=== PATIENT | female | born 1955 | race Caucasian/White ===

== ENCOUNTER 2020-06-27 05:30 | Inpatient (IN) | payer MEDICARE, OTHER ==
--- NOTE | 2020-06-22 11:15 | RADIOLOGY REPORT (SQ) ---
EXAM DESCRIPTION: CHEST PA/LATERAL IMAGES COMPLETED DATE/TIME: 06/22/2020 11:06 am REASON FOR STUDY: PRE-OP COMPARISON: None. EXAM PARAMETERS: NUMBER OF VIEWS: two views TECHNIQUE: Digital Frontal and Lateral radiographic views of the chest acquired. RADIATION DOSE: NA LIMITATIONS: none FINDINGS: LUNGS AND PLEURA: No opacities, masses or pneumothorax. No pleural effusion. MEDIASTINUM AND HILAR STRUCTURES: No masses or contour abnormalities. HEART AND VASCULAR STRUCTURES: Heart normal size. No evidence for failure. BONES: No acute findings. HARDWARE: None in the chest. OTHER: No other significant finding. IMPRESSION: NO SIGNIFICANT RADIOGRAPHIC FINDING IN THE CHEST. TECHNICAL DOCUMENTATION: JOB ID: [id number] 2010 [employer]- All Rights Reserved Reading location - IP/workstation name: [email or web address]
[2020-06-22 12:16] LABS: HEMATOCRIT 37.6 % (36.0-47.0); HEMOGLOBIN 12.9 g/dL (12.0-15.5); MEAN CORPUSCULAR HEMOGLOBIN 30.9 pg (27.0-33.4); MEAN CORPUSCULAR HGB CONC 34.3 g/dL (32.0-36.0); MEAN CORPUSCULAR VOLUME 90 fl (80-97); PLATELET COUNT 236 10^3/uL (150-450); RED BLOOD COUNT 4.17 10^6/uL (3.72-5.28); RED CELL DISTRIBUTION WIDTH 14.1 % (11.5-14.0); WHITE BLOOD COUNT 4.5 10^3/uL (4.0-10.5)
[2020-06-22 12:22] LABS: APPEARANCE,URINE CLEAR; BILIRUBIN,URINE NEGATIVE (NEGATIVE); COLOR,URINE YELLOW; GLUCOSE, URINE NEGATIVE (NEGATIVE); KETONES,URINE NEGATIVE (NEGATIVE); LEUKOCYTE ESTERASE,URINE TRACE (NEGATIVE); NITRITE,URINE NEGATIVE (NEGATIVE); PROTEIN,URINE NEGATIVE (NEGATIVE); URINE SPECIFIC GRAVITY 1.013; UROBILINOGEN,URINE NEGATIVE mg/dL (<2.0)
[2020-06-22 12:46] LABS: ANION GAP 6 (5-19); BLOOD UREA NITROGEN 19 mg/dL (7-20); CALCIUM 9.4 mg/dL (8.4-10.2); CARBON DIOXIDE 27 mmol/L (22-30); CHLORIDE 104 mmol/L (98-107); GLUCOSE 87 mg/dL (75-110); POTASSIUM 4.5 mmol/L (3.6-5.0)
[2020-06-22 12:50] LABS: ALCOHOL < 10 mg/dL (NONE DETECTED)
[2020-06-22 13:03] LABS: URINE AMPHETAMINES SCREEN NEGATIVE; URINE BARBITURATES SCREEN NEGATIVE; URINE BENZODIAZEPINES SCREEN NEGATIVE; URINE COCAINE SCREEN NEGATIVE; URINE MARIJUANA (THC) SCREEN NEGATIVE; URINE METHADONE SCREEN NEGATIVE; URINE PHENCYCLIDINE SCREEN NEGATIVE
--- NOTE | 2020-06-22 14:54 | EKG REPORT ---
SEVERITY:- ABNORMAL ECG - SINUS BRADYCARDIA RBBB : Confirmed by: Kenny Haley MD 22-Jun-2020 14:54:37
[~2020-06-27 05:30] MED LIST: CLINDAMYCIN 900 MG/D5W RTU 900 MG/50 ML RTUPB IV ONE; CLINDAMYCIN 900 MG/D5W RTU 900 MG/50 ML RTUPB IV PRN; LACTATED RINGERS 1000 ML IV PRN; LIDOCAINE 0.5% INJ-PF (5 MG/ML) 50 ML SDV SUBCUT PRN
[2020-06-27] MEDS ORDERED: BUPIVACAINE HCL 0.5 % INJ/PF 30 ML SDV ONE (07:07)
[2020-06-27] MEDS ORDERED: MIDAZOLAM 2 MG/2 ML INJ ONE (07:08)
[2020-06-27] MEDS ORDERED: MINERAL OIL (STERILE) 10 ML VIAL ONE (07:08)
[2020-06-27] MEDS ORDERED: BACITRACIN INJ 50,000 UNIT VIAL ONE (07:08)
[2020-06-27] MEDS ORDERED: HEPARIN SOD (PORCINE) 1,000 UNIT/ML 10 ML VIAL ONE (07:08)
[2020-06-27] MEDS ORDERED: BUPIVACAINE INJ/PF LIPOSOME/PF 266 MG/20 ML SDV ONE (07:08)
[2020-06-27] MEDS ORDERED: PROPOFOL INJ 200 MG/20 ML VIAL IV ONE (07:08)
[2020-06-27] MEDS ORDERED: LIDOCAINE 2% INJ-PF (20 MG/ML) 10 ML AMPUL ONE (07:08)
[2020-06-27] MEDS ORDERED: HYDROMORPHONE HCL INJ/PF 2 MG/ML AMPULE ONE (07:08)
[2020-06-27] MEDS ORDERED: PROMETHAZINE HCL 25 MG TABLET PO PRN (07:34)
[2020-06-27] MEDS ORDERED: MAGNESIUM HYDROXIDE SUSP 30 ML UDCUP PO PRN (07:34)
[2020-06-27] MEDS ORDERED: RINGERS SOLUTION,LACTATED 1,000 ML IV PRN (07:34)
[2020-06-27] MEDS ORDERED: ACETAMINOPHEN SOLN 325 MG/10.15 ML UDCUP PO PRN (07:34)
[2020-06-27] MEDS ORDERED: DIPHENHYDRAMINE HCL 50 MG/ML VIAL IV PRN ×2 (07:34→08:34)
[2020-06-27] MEDS ORDERED: ACETAMINOPHEN 650 MG SUPP.RECT PR PRN (07:34)
[2020-06-27] MEDS ORDERED: DIPHENHYDRAMINE HCL 25 MG CAPSULE PO PRN (07:34)
[2020-06-27] MEDS ORDERED: PROMETHAZINE HCL INJ 25 MG/1 ML VIAL IM PRN (07:34)
[2020-06-27] MEDS ORDERED: MORPHINE SULFATE 10 MG/ML INJ IV PRN (07:34)
[2020-06-27] MEDS ORDERED: METHOCARBAMOL 750 MG TABLET PO PRN (07:34)
[2020-06-27] MEDS ORDERED: ONDANSETRON HCL INJ/PF 4 MG/2 ML SDV IV PRN (08:34)
[2020-06-27] MEDS ORDERED: MEPERIDINE HCL/PF INJ 25 MG/1 ML DISP.SYRIN IV PRN (08:34)
[2020-06-27] MEDS ORDERED: FENTANYL CITRATE INJ/PF 100 MCG/2 ML AMPUL IV PRN ×2 (08:34)
[2020-06-27] MEDS ORDERED: PROMETHAZINE HCL INJ 25 MG/1 ML VIAL IV PRN ×2 (08:34)
--- NOTE | 2020-06-27 09:46 | Operative Report ---
Operative Report DATE OF SURGERY: 06/27/20 PREOPERATIVE DIAGNOSIS: L4-5 spondylolisthesis. L4-5 stenosis. L4-5 degenerat magdalene disc disease. Back pain. Lumbar radiculitis POSTOPERATIVE DIAGNOSIS: L4-5 spondylolisthesis. L4-5 stenosis. L4-5 degenerative disc disease. Back pain. Lumbar radiculitis. Status post L4-5 anterior lateral lumbar interbody fusion with interbody spacer. L4-5 posterior fusion robotically assisted with instrumentation and left iliac crest aspiration through separate incision for bone marrow concentration to be used with allograft OPERATION: L4-5 anterior lateral lumbar interbody fusion with interbody spacer. L4-5 posterior fusion robotically assisted with instrumentation and left iliac crest aspiration through separate incision for bone marrow concentration to be used with allograft SURGEON: ROMA SORTO 1ST AEROSOL LINE OPERATOR: DEYANIRA CHRISTIANSEN ANESTHESIA: GA COMPLICATIONS: None ESTIMATED BLOOD LOSS: 100 cc PROCEDURE: Patient is brought into the room placed under general anesthesia received 900 mg of clindamycin within 1 hour of cut time was placed on the Clarence table medial epicondyles and axillary areas are well-padded. Neuro monitoring leads for SSEP and cranial motor testing are placed on the patient as well as a Montejo catheter is placed preoperatively. After appropriate surgical timeout the [employer] robot is utilized and on the right posterior superior iliac spine a pin is placed and attached to the robot. After obtaining registration imaging in the AP and oblique position and verification 6.5 x 45 mm x2 and 6.5 x 40 mm x 2 screws are inserted using portal incisions on the right and the left at L4 and L5 bilaterally. Left iliac crest is aspirated at 2 different sites total of 50 cc of bone marrow aspirate are obtained and concentrated to be used an interbody spacer with the allograft. Attention was then paid to the left sided anterior lateral portal for entry into the disc space which is carried out under navigation guidance upon verification also with x-rays and then stimulation thresholds greater than 17 mA. Upon inserting the portal into the disc space at L4-5 fluoroscopy was used to verify the position as it did also to verify the screws position. Endplate pj and curettes and brushes are used to carry out a complete discectomy then the verify balloon is inserted to verify good contact with the endplates. Then the appropriate size mesh spacer is introduced into the interbody. The mesh spacer is soaked in bone marrow aspirate concentrate and is filled with bone graft showing good correction and good containment within the disc space at L4-5. Upon neuro monitoring testing and cranial motor testing found to be stable then the portal is removed anterior laterally and attention is then paid to the placement of the rods upon using the caliper device the appropriate length rods were determined to be 40 mm rods on the right and on the left those are passed down and locked into position and final tightened. Then the tabs are removed and the portals are irrigated with copious amounts of irrigation and the posterior superior iliac spine pin connected to the robot is removed as well and the deep and superficial tissues were infiltrated with 1.3% Exparel 20 cc mixed with 20 cc of 0.5% bupivacaine plain. The portals are closed using 2-0 Vicryl and then Dermabond and Steri-Strips then 4 x 4's were used to cover the wounds on the right and the left and dressed with coverall tape. Please note that this procedure could not be done without the assistance of Calvin Munson working to assist with the placement of the screws positioning of the robot carrying out the aspiration through the left side iliac crest aspiration please also note that the iliac crest aspiration is carried out on the left side through a separate incision. Calvin Munson was instrumental throughout this whole process and I could not have done this procedure without his assistance as mentioned above.
[2020-06-27] MEDS ORDERED: METHOCARBAMOL 500 MG TABLET PO PRN (09:51)
[2020-06-27] MEDS ORDERED: METHOCARBAMOL INJ/PF 1000 MG/10 ML SDV ONE (09:54)
[2020-06-27] MEDS ORDERED: FENTANYL CITRATE INJ/PF 100 MCG/2 ML AMPUL ONE (09:55)
[2020-06-27] MEDS ORDERED: METFORMIN HCL PO SCH (10:00)
[2020-06-27] MEDS: FENTANYL CITRATE INJ/PF 100 MCG/2 ML AMPUL IV PRN ×2 (10:05→10:10)
--- NOTE | 2020-06-27 10:12 | RADIOLOGY REPORT (SQ) ---
EXAM DESCRIPTION: L SPINE 2 VIEWS; NO CHG FLUORO IMAGES COMPLETED DATE/TIME: 06/27/2020 9:55 am REASON FOR STUDY: LUMBAR SPINE FUSION ASSISTED WITH FLUORO IN OR M54.5 LOW BACK PAIN M51.16 INTERV ERTEBRAL DISC DISORDERS W RADICULOPATHY, LUMBAR M43.16 SPONDYLOLISTHESIS, LUMBAR REGION COMPARISON: None. FLUOROSCOPY TIME: 0.9 minutes. 2 images saved to PACS. TECHNIQUE: Intra-operative images acquired during surgical procedure to evaluate progress. NUMBER OF IMAGES: 2 images. LIMITATIONS: None. FINDINGS: Images of the lower lumbar spine acquired during the procedure. IMPRESSION: IMAGE(S) OBTAINED DURING PROCEDURE. COMMENT: Quality ID [id number]: Final reports for procedures using fluoroscopy that document radiation exp osure indices, or exposure time and number of fluorographic images (if radiation exposure indices are not available) Please consult full operative report of the attending physician for description of the procedure. TECHNICAL DOCUMENTATION: JOB ID: [id number] 2010 [employer]- All Rights Reserved Reading location - IP/workstation name: [email or web address]
--- NOTE | 2020-06-27 10:12 | RADIOLOGY REPORT (SQ) ---
EXAM DESCRIPTION: L SPINE 2 VIEWS; NO CHG FLUORO IMAGES COMPLETED DATE/TIME: 06/27/2020 9:55 am REASON FOR STUDY: LUMBAR SPINE FUSION ASSISTED WITH FLUORO IN OR M54.5 LOW BACK PAIN M51.16 INTERV ERTEBRAL DISC DISORDERS W RADICULOPATHY, LUMBAR M43.16 SPONDYLOLISTHESIS, LUMBAR REGION COMPARISON: None. FLUOROSCOPY TIME: 0.9 minutes. 2 images saved to PACS. TECHNIQUE: Intra-operative images acquired during surgical procedure to evaluate progress. NUMBER OF IMAGES: 2 images. LIMITATIONS: None. FINDINGS: Images of the lower lumbar spine acquired during the procedure. IMPRESSION: IMAGE(S) OBTAINED DURING PROCEDURE. COMMENT: Quality ID [id number]: Final reports for procedures using fluoroscopy that document radiation exp osure indices, or exposure time and number of fluorographic images (if radiation exposure indices are not available) Please consult full operative report of the attending physician for description of the procedure. TECHNICAL DOCUMENTATION: JOB ID: [id number] 2010 [employer]- All Rights Reserved Reading location - IP/workstation name: [email or web address]
[2020-06-27] MEDS ORDERED: METHOCARBAMOL INJ/PF 1000 MG/10 ML SDV IV PRN (10:35)
[2020-06-27] MEDS: GABAPENTIN 300 MG CAPSULE PO SCH ×3 (11:35→23:56)
[2020-06-27] MEDS: OXYCODONE HCL IR 5 MG TABLET PO PRN ×3 (11:35→20:54)
[2020-06-27] MEDS: ACETAMINOPHEN 325 MG TABLET PO SCH ×2 (13:38→21:57)
[2020-06-27] MEDS: METHOCARBAMOL 750 MG TABLET PO SCH ×2 (13:39→21:58)
[2020-06-27] MEDS: ONDANSETRON HCL INJ/PF 4 MG/2 ML SDV IV PRN ×2 (13:39→20:12)
[2020-06-27] MEDS: CLINDAMYCIN 900 MG/D5W RTU 900 MG/50 ML RTUPB IV SCH ×2 (13:40→21:58)
[2020-06-27] MEDS ORDERED: CLINDAMYCIN 600 MG/D5W RTU 600 MG/50 ML RTUPB IV SCH (14:00)
[2020-06-27] MEDS ORDERED: GLYCOPYRROLATE 1 MG/5 ML VIAL ONE (16:04)
[2020-06-27] MEDS ORDERED: DEXAMETHASONE SOD PHOSPHATE INJ 4 MG/1 ML VIAL ONE (16:04)
[2020-06-27] MEDS ORDERED: SUCCINYLCHOLINE CHLORIDE INJ 200 MG/10 ML VIAL ONE (16:04)
[2020-06-27] MEDS ORDERED: METOCLOPRAMIDE HCL INJ/PF 10 MG/2 ML SDV ONE (16:04)
[2020-06-27] MEDS ORDERED: ONDANSETRON HCL INJ/PF 4 MG/2 ML SDV ONE (16:04)
[2020-06-27] MEDS ORDERED: LIDOCAINE 2% INJ-PF (20 MG/ML) 2 ML AMPUL ONE (16:04)
[2020-06-27] MEDS: SENNOSIDES/DOCUSATE 8.6-50 MG 1 EACH TABLET PO SCH (17:28)
[2020-06-27] MEDS: METFORMIN HCL 500 MG TABLET PO SCH (17:28)
[2020-06-27] MEDS: ATORVASTATIN CALCIUM 40 MG TABLET PO SCH (21:58)
[2020-06-28] MEDS: OXYCODONE HCL IR 5 MG TABLET PO PRN ×4 (02:13→21:20)
[2020-06-28] MEDS: ACETAMINOPHEN 325 MG TABLET PO SCH ×3 (06:30→21:57)
[2020-06-28] MEDS: GABAPENTIN 300 MG CAPSULE PO SCH ×4 (06:32→23:16)
[2020-06-28] MEDS: CLINDAMYCIN 900 MG/D5W RTU 900 MG/50 ML RTUPB IV SCH ×3 (06:32→21:21)
[2020-06-28] MEDS: METHOCARBAMOL 750 MG TABLET PO SCH ×3 (06:32→21:57)
[2020-06-28] MEDS: LEVOTHYROXINE SODIUM 0.088 MG TABLET PO SCH (06:32)
[2020-06-28] MEDS: PANTOPRAZOLE SODIUM 20 MG TABLET.DR PO SCH (06:32)
[2020-06-28] MEDS ORDERED: INFLUENZA QUAD (6MOS+) 2020-21 VAC 0.5 ML SYR IM ONE (08:00)
--- NOTE | 2020-06-28 08:09 | PDOC PROGRESS REPORT ---
Subjective Date:: 06/28/20 Subjective:: Postop day 1 lumbar fusion: Patient is laying in bed at time of exam, she reports improvement in her right leg pain. Reports apprehension to being discharged home today. Patient reports that her was not discharged on postop day 1 a lumbar fusion and had significant issues. Patient also reports that she has a large number of stairs to get into her house and is worried about being able to navigate the stairs. She reports normal bowel and bladder function. Ports she is eating well and drinking well Reason For Visit: M51.16, M54.5, M43.16 Physical Exam Vital Signs: Temp Pulse Resp BP Pulse Ox 98.1 F 67 16 113/59 L 99 06/28/20 03:06 06/28/20 03:06 06/28/20 03:06 06/28/20 03:06 06/28/20 03:06 Intake & Output 06/27/20 06/28/20 06/29/20 06:59 06:59 06:59 Intake Total 2560 Output Total 20 Balance 2540 Weight 66 kg General appearance: PRESENT: no acute distress, cooperative Head exam: PRESENT: atraumatic, normocephalic Eye exam: PRESENT: PERRLA Extremities exam: PRESENT: tenderness - Appropriate postoperative pain swelling and tenderness is appreciated. ABSENT: calf tenderness, joint swelling Musculoskeletal exam: PRESENT: ambulatory Additional comments: Lumbar spine: Dressing is clean and dry and intact no signs of bleeding edges appreciated on the dressing. Neurological exam: PRESENT: alert, altered, awake, oriented to situation Psychiatric exam: PRESENT: appropriate affect Results Laboratory Results: 06/22/20 10:55 06/22/20 10:55 Impressions: Chest X-Ray 06/22/20 00:00 IMPRESSION: NO SIGNIFICANT RADIOGRAPHIC FINDING IN THE CHEST. Fluoroscopy 06/27/20 00:00 IMPRESSION: IMAGE(S) OBTAINED DURING PROCEDURE. Lumbar Spine X-Ray 06/27/20 00:00 IMPRESSION: IMAGE(S) OBTAINED DURING PROCEDURE. Assessment & Plan - Time Time Spent with patient: Less than 15 minutes - Plan Summary Plan Summary: Stop day 1 lumbar fusion: Patient is doing well status post lumbar fusion. Consider discharge home today if patient meets physical therapy goals and pain is under good control. Prescriptions have been sent to her pharmacy for discharge. Continue to follow-up postop lumbar fusion protocol
[2020-06-28] MEDS: CETIRIZINE 10 MG TABLET PO SCH (09:44)
[2020-06-28] MEDS: SENNOSIDES/DOCUSATE 8.6-50 MG 1 EACH TABLET PO SCH ×2 (09:44→17:13)
[2020-06-28] MEDS: METFORMIN HCL 500 MG TABLET PO SCH ×2 (09:45→17:15)
[2020-06-28] MEDS: POLYETHYLENE GLYCOL 3350 POWDER 17 GM/1 PACKET PO SCH (09:45)
--- OUTSIDE RECORDS SUMMARY | 2020-06-28 17:50 | XMS REPORT ---
:1955 [facility] [address] [place] [id number] Care Team Providers Name Role Phone SHANNA BHATTI Primary Care Physician Unavailable Shanna Bhatti Attending Clinician Unavailable BUSTER Attending Clinician Unavailable ETHAN BHATTI Attending Clinician Unavailable AMANDA Attending Clinician Unavailable ANGELA MARIE Attending Clinician Unavailable JOSEPH Attending Clinician Unavailable BILLIE Attending Clinician Unavailable Rj ALFARO Attending Clinician Unavailable ETHAN PAINTER Attending Clinician Unavailable Mamta BOOKER Attending Clinician Unavailable ANGELA MARIE Admitting Clinician Unavailable JOSEPH Admitting Clinician Unavailable Allergies, Adverse Reactions, Alerts Allergy Allergy Status Severity Reaction(s) Onset Inactive Treating C omments Name Type Date Date Clinician Penicillins Drug Inactive High Hives 2017- Allergy 7-16 00:00: 00 Penicillins Propensity Active High Hives to adverse 7-16 reactions 00:00: 00 penicillin drug Active Itching 2009-0 G allergy 9-04 00:00: 00 Penicillins Allergy to Active Hives substance Penicillins Allergy to Active Moderate HIVES ([id number] Substance ) Medications Ordered Filled Start Stop Current Ordering Indication Dosage Frequency Signature Comments Components Medication Medication Date Date Medication? Clinician (SIG) Name Name metformin Yes Q1D take 1 by ER 500 mg 5-12 Oral route tablet,exte 00:00: every day nded 00 release 24 hr Glucometer Yes Check FSBS with Strips 5-12 once & Lancets 00:00: daily. Dx 00 E11.8 Dispense #1 glucometer , #50 test strips, #1 box lancets LEVOTHYROXI 2018-08 Yes TAKE 1 NE 0.075MG 2-18 TABLET BY (75MCG) 00:00: MOUTH TABS 00 EVERY DAY ATORVASTATI 2018-08 Yes TAKE 1 N 20 MG 1-22 TABLET BY TABLET 00:00: MOUTH 00 EVERY DAY Synthroid Yes 1{table Q1D take 1 88 mcg 9-17 t} tablet by tablet 00:00: oral route 00 every day Nexium 40 Yes TAKE ONE mg 9-03 CAPSULE BY capsule,del 00:00: MOUTH ayed 00 EVERY DAY release FOR REFLUX esomeprazol No esomeprazo e magnesium 4-17 le 40 mg 00:00: magnesium capsule,del 00 40 mg ayed capsule,de release layed release cyclobenzap 2017-08 No Levator 5MG Take 1 Take 1 rine 2-04 spasm tablet (5 tablet (5 (FLEXERIL) 00:00: mg total) mg t otal) 5 MG tablet 00 by mouth by mo uth nightly as nightly needed for as needed muscle for spasms. muscle spasms. atorvastati 2017-08 Yes 20MG Take 20 mg Ta ke 20 n (LIPITOR) 0-19 by mouth mg by 20 MG 11:15: daily. mouth tablet 21 daily. levothyroxi 2017-08 Yes 88ug Take by Take by ne 88 mcg 0-19 mouth. mouth. cap 11:15: 21 esomeprazol 2017-08 Yes 40MG Take 40 mg Ta ke 40 e (NEXIUM) 0-19 by mouth mg by 40 MG 11:15: every mouth capsule 21 morning every before morning breakfast. before breakfast . gabapentin 2017-08 Yes 300MG Take 300 Take 300 (NEURONTIN) 0-19 mg by mg by 300 MG 11:15: mouth Four mouth capsule 21 (4) times Four (4) a day. times a day. gabapentin 2017-08 No 600MG Take 600 Take 600 (NEURONTIN) 0-19 mg by mg by 300 MG 11:15: mouth mouth capsule 21 nightly. nightly. ibuprofen 2017-08 No 600MG Take 1 Take 1 (ADVIL,MOTR 0-19 tablet tablet IN) 600 MG 00:00: (600 mg (600 m g tablet 00 total) by total) by mouth mouth every six every six (6) hours (6) hours as needed as needed for pain. for pain. acetaminoph 2017-08 2018- No 650MG Take 2 Take 2 en 0-19 10-19 tablets tablets (TYLENOL) 00:00: 00:00 (650 mg (650 mg 325 MG 00 :00 total) by total) by tablet mouth mouth every six every six (6) hours (6) hours as needed as needed for pain. for pain. polyethylen 2017-08- No 17g Take 17 g Janine e 17 g e glycol 0-19 10-19 by mouth by mouth (MIRALAX) 00:00: 00:00 daily. daily. 17 gram 00 :00 packet oxyCODONE 2017-08- No 5MG Take 1 Take 1 (ROXICODONE 0-19 10-19 tablet (5 tabl et (5 ) 5 MG 00:00: 00:00 mg total) mg total ) immediate 00 :00 by mouth by mout h release every six every si x tablet (6) hours (6) hours as needed as needed for pain. for pain. oxyCODONE 2017-08- No 5MG Take 1 Take 1 (ROXICODONE 0-19 10-19 tablet (5 tabl et (5 ) 5 MG 00:00: 00:00 mg total) mg total ) immediate 00 :00 by mouth by mout h release every six every si x tablet (6) hours (6) hours as needed as needed for pain. for pain. For For postoperat postopera magdalene pain tive pain diclofenac Yes 75MG Take 75 mg Janine e 75 (VOLTAREN) 7-16 by mouth mg by 75 MG EC 10:28: Two (2) mouth Tw o tablet 44 times a (2) times day. a day. sitaGLIPtin 2017- Yes 1{tbl} Take 1 Take 1 -metFORMIN 7-16 tablet by table t by (JANUMET) 10:28: mouth 2 mouth 2 50-1,000 mg 43 (two) (two) per tablet times a times a day with day with meals. meals. diclofenac 2017- Yes 1{table Q12H take 1 sodium 75 4-30 t} tablet mg 00:00: (75MG) by tablet,gume 00 oral route yed release 2 times every day as needed Ibuprofen 2017- Yes Gypsy 800 Every 8 (Motrin 1-17 Ab-Al Hours as Tab*) 800 00:00: brenton needed for Mg Tab 00 Pain Oxycodone Yes Gypsy 5 Every 4 Hcl 1-17 Ab-Al Hours as (Roxicodone 00:00: brenton needed for *) 5 Mg 00 Pain Tablet gabapentin Yes take 1 300 mg 6-23 capsule by capsule 00:00: oral route 00 three times a day Sucralfate 2012-08 2017- No Jono Morel 1 Twice Per (Carafate -12 04-07 Quang Diaz Day Susp*) 1 00:00: 00:00 Gm/10 Ml 00 :00 Oral.susp, 1 Gm Oral atorvastati No atorvastat n 20 mg in 20 mg tablet TK 1 tablet TK T PO QD FOR 1 T PO QD CHOLESTRERO FOR L CHOLESTRER OL diclofenac No diclofenac sodium 75 sodium 75 mg mg tablet,gume tablet,del yed release ayed TAKE 1 release TABLET BY TAKE 1 MOUTH TWICE TABLET BY DAILY MOUTH TWICE DAILY docusate No docusate sodium 100 sodium 100 mg capsule mg capsule TAKE 1 TAKE 1 CAPSULE BY CAPSULE BY MOUTH TWICE MOUTH A DAY TWICE A DAY esomeprazol No esomeprazo e magnesium le 40 mg magnesium capsule,del 40 mg ayed capsule,de release TK layed 1 C PO QD release TK FOR REFULX 1 C PO QD FOR REFULX gabapentin No gabapentin 300 mg 300 mg capsule capsule TAKE ONE TAKE ONE CAPSULE BY CAPSULE BY MOUTH TWICE MOUTH DAILY AND 2 TWICE CAPSULES AT DAILY AND BEDTIME 2 CAPSULES AT BEDTIME ibuprofen No ibuprofen 800 mg 800 mg tablet tablet Janumet XR No Janumet XR 50 mg-1,000 50 mg mg-1,000 tablet,exte mg nded tablet,ext release ended TAKE 1 release TABLET BY TAKE 1 MOUTH TWICE TABLET BY A DAY MOUTH TWICE A DAY Kombiglyze No Kombiglyze XR 2.5 XR 2.5 mg-1,000 mg mg-1,000 tablet,exte mg nded tablet,ext release ended release levothyroxi No levothyrox ne 75 mcg ine 75 mcg tablet TK 1 tablet TK T PO QD 1 T PO QD levothyroxi No levothyrox ne 88 mcg ine 88 mcg tablet TK 1 tablet TK T PO QD 1 T PO QD mupirocin 2 No mupirocin % topical 2 % ointment topical ointment nitrofurant No nitrofuran oin toin monohydrate monohydrat /macrocryst e/macrocry als 100 mg stals 100 capsule mg capsule Proctosol No Proctosol HC 2.5 % HC 2.5 % rectal rectal cream with cream with applicator applicator APPLY TO APPLY TO AFFECTED AFFECTED AREA TWICE AREA TWICE A DAY FOR A DAY FOR HEMORRHOIDS HEMORRHOID S sulfamethox No sulfametho azole 800 xazole 800 mg-trimetho mg-trimeth prim 160 mg oprim 160 tablet TK 1 mg tablet T PO Q 12 H TK 1 T PO FOR 10 DAYS Q 12 H FOR 10 DAYS Trimo-Napoles No Trimo-Napoles Jelly 0.025 Jelly %-0.01 % 0.025 vaginal %-0.01 % INSERT 1 G vaginal TWICE A INSERT 1 G WEEK BY TWICE A VAGINAL WEEK BY ROUTE AT VAGINAL BEDTIME. ROUTE AT BEDTIME. valacyclovi No valacyclov r 1 gram ir 1 gram tablet TAKE tablet 1 TABLET BY TAKE 1 MOUTH EVERY TABLET BY 8 HOURS MOUTH EVERY 8 HOURS Bactrim DS No 1 Q12H Bactrim DS 800 mg-160 800 mg-160 mg tablet mg tablet Take 1 Take 1 tablet tablet every 12 every 12 hours by hours by oral route oral route for 10 for 10 days. days. metformin No metformin ER 500 mg ER 500 mg tablet,exte tablet,ext nded ended release 24 release 24 hr 1 tab po hr 1 tab daily po daily tramadol 50 No tramadol mg tablet 1 50 mg tab po tablet 1 daily tab po daily Atorvastati Yes 20 Once Per n Calcium Day (Lipitor*) 20 Mg Tablet Esomeprazol Yes 40 Daily e Magnesium Before (Nexium*) Breakfast 40 Mg Capcr Gabapentin Yes 300 Twice Per (Neurontin* Day ) 300 Mg Cap Gabapentin Yes 600 At Bedtime (Neurontin* ) 600 Mg Tablet Esomeprazol 2018- No 40 Once Per e Magnesium 08-25 Day (Nexium*) 00:00 40 Mg :00 Capcr, 40 Mg Oral Aspirin 2017- No 81 Once Per (Ecotrin*) 04-07 Day 81 Mg 00:00 Tabec, 81 :00 Mg Oral Esomeprazol 2017- No 40 Daily e Magnesium 04-07 Before (Nexium*) 00:00 Breakfast 40 Mg :00 Capcr, 40 Mg Oral Ibuprofen 2017- No 200 As (Advil) 200 04-07 Directed Mg Cap, 200 00:00 Mg Oral :00 Levothyroxi 2016- No 75 Once Per ne Sodium 04-07 Day (Synthroid* 00:00 ) 75 Mcg :00 Tablet, 75 Mcg Oral Metformin No 750 Daily With Hcl 04-07 Evening (Glucophage 00:00 Meal *) 500 Mg :00 Tab, 750 Mg Oral Nitroglycer 2016- No .4 As Needed in 04-07 (Nitrostat* 00:00 ) 0.4 Mg :00 Tab.subl, 0.4 Mg Sublingual Atorvastati 2012- No n Calcium 07-28 (Lipitor 00:00 (Unknown :00 Dosage)) Tab, Esomeprazol 2012- No 40 Once Per e Magnesium 07-28 Day (Nexium) 40 00:00 Mg Capcr, :00 40 Mg Oral Levothyroxi 2012- No 75 Once Per ne Sodium 07-28 Day (Synthroid* 00:00 ) 88 Mcg :00 Tablet, 75 Mcg Oral Nitroglycer 2012- No .1 in 07-28 (Nitroglyce 00:00 rin Patch) :00 1 Each Patch.td24, 0.1 Mg Transderm Salmeterol 2012- No Xinafoate/F 07-28 luticasone 00:00 (Advair :00 Diskus (Unknown Dosage)) 1 Ea Puff, Problems Condition Condition Condition Status Onset Resolution Last Treatin g Comments Name Details Category Date Date Treatment Clinician Date Lumbar Lumbar Problem Active spondylolis Spondylolis 8-11 thesis thesis 00:00: 00 Postmenopau Postmenopau Problem Active yamel yamel 6-09 osteoporosi Osteoporosi 00:00: s s 00 Varicose Varicose Problem Active veins of Veins of 4-17 lower Lower 00:00: extremity Extremity 00 Prolapse of Prolapse of Condition Active 2018-04-21 Overview: anterior anterior 905 15:37:07 Added vaginal vaginal 00:00: automati c wall wall 00 miltony doc m request for surgery [id number] Vaginal Vaginal Problem Active 2018-03-01 vault vault 7-16 11:54:18 prolapse prolapse 00:00: 00 Blood Blood Problem Active 2017-12-14 chemistry chemistry 4-30 00:00:00 abnormal abnormal 00:00: 00 Status post Problem Active laparoscopi 1-16 c assisted 13:11: vaginal 00 hysterectom y Cystocele Problem Active with 1-16 rectocele 13:00: 00 Prolapse of Problem Active female 1-16 pelvic 12:59: organs 00 Uterine Problem Active prolapse 1-16 12:59: 00 Bacterial Bacterial Problem Active 2016-082017-08-07 urinary urinary 2- 00:00:00 infection infection 00:00: 00 Abnormal Abnormal Problem Active 2016-082017-08-07 finding on finding on 10-08 00:00:00 evaluation evaluation 00:00: procedure procedure 00 Acquired Acquired Problem Active 2016-082017-08-07 hypothyroid hypothyroid 10-08 00:00:00 ism ism 00:00: 00 Dyslipidemi Dyslipidemi Problem Active 2016-082017-08-07 a a 10-08 00:00:00 00:00: 00 Uterine Uterine Problem Active 2016-082017-07-14 prolapse prolapse 1- 00:00:00 00:00: 00 Sigmoid Problem Active diverticulo 8-25 sis 09:19: 00 Personal Problem Active history of 8-25 colonic 08:16: polyps 00 Osteopenia Osteopenia Problem Active 2017-01-29 6-15 00:00:00 00:00: 00 Abnormal Abnormal Problem Active 2017-01-29 cervical cervical 6 00:00:00 Papanicolao Papanicolao 00:00: u smear u smear 00 Costal Costal Problem Active 2015-082016-08-14 chondritis chondritis 00:00:00 00:00: 00 Metatarsalg Metatarsalg Problem Active 2015-082016-05-30 ia ia 0-14 00:00:00 00:00: 00 Gastroesoph Gastroesoph Problem Active 2016-02-07 ageal ageal 02-06 00:00:00 reflux reflux 00:00: disease disease 00 without without esophagitis esophagitis Impaired Impaired Problem Active 2014-082015-08-01 fasting fasting 10-02 00:00:00 glycaemia glycaemia 00:00: 00 Cellulitis Cellulitis Problem Active 2014-082015-07-26 of buttock of buttock 2 00:00:00 00:00: 00 Body mass Body mass Problem Active 2014-082015-07-26 index 25-29 index 25-29 2-10 00:00:00 - - 00:00: overweight overweight 00 Cellulitis Cellulitis Problem Active 2014-082015-07-26 of groin of groin 09-26 00:00:00 00:00: 00 Hypothyroid Hypothyroid Problem Active ism ism Hypercholes Hypercholes Problem Active terolemia terolemia Generalized Generalized Problem Active anxiety Anxiety disorder Disorder Allergic Allergic Problem Active rhinitis Rhinitis Gastroesoph Gastroesoph Problem Active ageal ageal reflux Reflux disease Disease Diverticuli Diverticuli Problem Active tis tis Lumbar disc Lumbar Disc Problem Active prolapse Prolapse with with radiculopat Radiculopat hy hy Low back Low Back Problem Active pain Pain Acquired Acquired Problem Active spondylolis Spondylolis thesis thesis Impaired Impaired Problem Active glucose Glucose tolerance Tolerance 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 History of History of Problem Active polyp of Polyp of colon Colon Hyperlipide Hyperlipide Problem Active edward edward Degeneratio Degeneratio Problem Active n of n of lumbosacral Lumbosacral interverteb Interverteb ral disc ral Disc Lumbosacral Lumbosacral Problem Active neuritis Neuritis Procedures Procedure Date / Time Performed Performing Clinician Devic e XR, lumbar spine 2020-03-27 00:00:00 Office/outpatient visit, est, 2019-12-27 00:00:00 Shanna Bhatti detailed [facility] MGMT SRVC 20 MIN 2019-10-06 00:00:00 Shanna Bhatti bone density 2019-08-18 00:00:00 Hemoglobin A1C 2019-06-28 00:00:00 Shanna Bhatti Draw Blood 2019-06-28 00:00:00 Shanna Bhatti Office/outpatient visit, est, 2019-06-28 00:00:00 Shanna Bhatti detailed ADMIN PNEUMOCOCCAL VACCINE 2019-06-23 00:00:00 Shanna Bhatti PNEUMOCOCCAL VACC, 13 JAMSHID IM 2019-06-23 00:00:00 Shanna Bhatti ADMIN INFLUENZA VIRUS VAC 2019-06-23 00:00:00 Shanna Bhatti IIV ADJUVANT VACCINE IM 2019-06-23 00:00:00 Shanna Bhatti Comp asses care plan [facility] 2019-06-23 00:00:00 Shanna Bhatti svc_provider Initial preventive exam 2019-06-23 00:00:00 Shanna Bhatti Office/outpatient visit, est, 2018-12-21 00:00:00 Tracey Bhattina Mamta detailed OFFICE/OUTPATIENT VISIT, EST 2018-07-22 00:00:00 Shanna Bhatti Office/outpatient visit, est, 2018-06-22 00:00:00 Shanna Bhatti detailed Immunization admin, 1 vaccine 2018-06-22 00:00:00 Tracey Bhattina Mamta Influenza Virus Vaxccine, 2018-06-22 00:00:00 Shanna Bhatti Quadrivalen (ccIIV4) POCT GLUCOSE, INTERFACED 2018-06-10 16:55:00 Remberto Marie POCT GLUCOSE, INTERFACED 2018-06-10 13:01:00 Remberto Marie Office/outpatient visit, est, 2017-12-14 00:00:00 Shanna Bhatti detailed Total Hysterectomy 2017-09-04 00:00:00 Laparoscopic assisted vaginal 2017-09-01 00:00:00 GYPSY PALENCIA hysterectomy Anterior and posterior 2017-09-01 00:00:00 TAYLOR RUIZ I colporrhaphy Cystoscopy 2017-09-01 00:00:00 GYPSY RUIZ URINALYSIS NONAUTO W/O SCOPE 2017-08-07 00:00:00 Shanna Bhatti Preventive checkup, est, 2017-08-07 00:00:00 Addie Renatojosey Oleary yrs Office/outpatient visit, est, 2017-07-14 00:00:00 Addie Shanna M detailed Office/outpatient visit, est, 2017-01-29 00:00:00 detailed OFFICE/OUTPATIENT VISIT, EST 2016-08-14 00:00:00 OFFICE/OUTPATIENT VISIT, EST 2016-08-07 00:00:00 URINALYSIS NONAUTO W/O SCOPE 2016-07-24 00:00:00 Preventive checkup, est, 4064 2016-07-24 00:00:00 yrs OFFICE/OUTPATIENT VISIT, EST 2016-05-30 00:00:00 Office/outpatient visit, est, 2016-02-07 00:00:00 detailed URINALYSIS NONAUTO W/O SCOPE 2015-08-01 00:00:00 Reggie Walker Blood, occult, qual, feces, 1-3 2015-08-01 00:00:00 Reggie Walker simultn detrm Preventive checkup, est, 4064 2015-08-01 00:00:00 yrs Office/outpatient visit, est, 2015-07-26 00:00:00 detailed No Charge 2015-05-04 00:00:00 OFFICE/OUTPATIENT VISIT, EST 2015-04-30 00:00:00 Reggie Walker Incision & drainage abscess, 2015-04-30 00:00:00 Reggie Walker compl/multiple OFFICE/OUTPATIENT VISIT, EST 2015-02-26 00:00:00 Incision & drainage abscess, 2015-02-26 00:00:00 compl/multiple OFFICE/OUTPATIENT VISIT, EST 2015-01-17 00:00:00 Preventive checkup, est, 4064 2014-07-31 00:00:00 yrs Urinalysis, non-automated, 2014-07-31 00:00:00 w/scope Draw Blood 2014-07-25 00:00:00 OFFICE/OUTPATIENT VISIT, EST 2014-07-07 00:00:00 OFFICE/OUTPATIENT VISIT, EST 2014-07-04 00:00:00 Incision & drainage abscess, 2014-07-04 00:00:00 simple/single OFFICE/OUTPATIENT VISIT, EST 2014-05-30 00:00:00 OFFICE/OUTPATIENT VISIT, EST 2014-05-10 00:00:00 Urinalysis, non-automated, 2014-05-10 00:00:00 w/scope OFFICE/OUTPATIENT VISIT, EST 2014-02-27 00:00:00 Solumedrol 2014-02-27 00:00:00 OFFICE/OUTPATIENT VISIT, EST 2014-02-21 00:00:00 Toradol 2014-02-21 00:00:00 OFFICE/OUTPATIENT VISIT, EST 2014-01-24 00:00:00 Draw Blood 2014-01-17 00:00:00 Reggie Walker TSH, thyroid stimulating hormone 2013-07-21 00:00:00 Zack Walker Assay, free thyroxine 2013-07-21 00:00:00 Reggie Walker Lipid panel 2013-07-21 00:00:00 Reggie Walker Hepatitis function panel 2013-07-21 00:00:00 Reggie Walker Assay, GGT enzyme 2013-07-21 00:00:00 Reggie Walker Cholesterol, serum/whole blood, 2013-07-21 00:00:00 Reggie Walker total LDH enzyme 2013-07-21 00:00:00 Reggie Walker Glucose 2013-07-21 00:00:00 Reggie Walker Hemoglobin A1C 2013-07-21 00:00:00 Reggie Walker OFFICE/OUTPATIENT VISIT, EST 2013-05-20 00:00:00 General health panel 2013-05-17 00:00:00 Reggie Walker Hemoglobin A1C 2013-05-17 00:00:00 Reggie Walker Glucose 2013-05-17 00:00:00 Reggie Walker Preventive checkup, est, 4064 2012-12-03 00:00:00 yrs Pap Smear 2012-12-03 00:00:00 Urinalysis, non-automated, 2012-12-03 00:00:00 w/scope Draw Blood 2012-11-30 00:00:00 JulietReggie rogel Office/outpatient visit, est, 2012-05-28 00:00:00 exp prob Office/outpatient visit, est, 2012-05-21 00:00:00 detailed METHYLPREDNISOLONE 40 MG INJ 2012-05-21 00:00:00 Arthrocentesis major joint/bursa 2012-05-21 00:00:00 Draw Blood 2012-05-18 00:00:00 Reggie Walker Office/outpatient visit, est, 2012-01-16 00:00:00 exp prob METHYLPREDNISOLONE 40 MG INJ 2012-01-16 00:00:00 Arthrocentesis major joint/bursa 2012-01-16 00:00:00 Colonoscopy 2012-01-16 00:00:00 Office/outpatient visit, est, 2011-12-05 00:00:00 exp prob Preventive checkup, est, 4064 2011-11-21 00:00:00 yrs Urinalysis, non-automated, 2011-11-21 00:00:00 w/scope Draw Blood 2011-11-18 00:00:00 Reggie Walker F Colonoscopy 2011-08-17 00:00:00 Office/outpatient visit, est, 2011-05-23 00:00:00 detailed METHYLPREDNISOLONE 40 MG INJ 2011-05-23 00:00:00 Arthrocentesis major joint/bursa 2011-05-23 00:00:00 THER/PROPH/DIAG INJ, SC/IM 2011-05-23 00:00:00 Draw Blood 2011-05-20 00:00:00 Reggie Walker Office/outpatient visit, est, 2011-04-28 00:00:00 exp prob Office/outpatient visit, est, 2010-11-22 00:00:00 detailed Draw Blood 2010-11-19 00:00:00 Reggie Walker Office/outpatient visit, est, 2010-06-19 00:00:00 detailed Urinalysis, non-automated, 2010-06-19 00:00:00 w/scope Preventive checkup, est, 64 2010-05-29 00:00:00 yrs Blood, occult, qual, feces, 1-3 2010-05-29 00:00:00 simultn detrm Pap Smear 2010-05-29 00:00:00 Urinalysis, non-automated, 2010-05-29 00:00:00 w/scope Draw Blood 2010-05-21 00:00:00 Reggie Walker Office/outpatient visit, est, 2010-01-31 00:00:00 Reggie Walker exp prob Electrocardiogram (routine ECG), 2010-01-31 00:00:00 Zack Walker complete Office/outpatient visit, est, 2009-12-05 00:00:00 exp prob TDAP VACCINE >7 IM 2009-12-05 00:00:00 Immunization admin, 1 vaccine 2009-12-05 00:00:00 Draw Blood 2009-11-21 00:00:00 Reggie Walker Office/outpatient visit, est, 2009-07-24 00:00:00 Reggie Walker detailed Electrocardiogram (routine ECG), 2009-07-24 00:00:00 Zack Walker complete Preventive checkup, est, 4064 2009-05-17 00:00:00 Reggie Walker yrs Blood, occult, qual, feces, 1-3 2009-05-17 00:00:00 Reggie Walker simultn detrm Urinalysis, non-automated, 2009-05-17 00:00:00 Reggie Walker w/scope Draw Blood 2009-05-10 00:00:00 Reggie Walker Office/outpatient visit, [facility], 2009-04-20 00:00:00 mod complex Orthopedic Surgery 2003-08-17 00:00:00 LEG SURGERY PROCEDURE 2000-08-17 00:00:00 Tonsillectomy 1973-08-17 00:00:00 Rhinoplasty Orthopedic Surgery Other Tonsillectomy Results Test Description Test Time Test Comments Text Results Atomic Results Result Comments MAMMOGRAPHY 2019-01-25 [facility] 16:31:[address] [place] [id number] ---- Patient: BILL PATEL : 1955 Sex: F Address: [address] [place] [address] [place] [address] Unit #: [id number] RE SEQ #: [id number] Location: IMAGE Room #: Ordering: SHANNA BHATTI [facility] Diagnosis: SCREENING MA MMO ---- Procedure Report Patient History : No known family history of cancer. Benign excisional biopsy of both breasts. No Ho rmone Replacement Therapy Last mammogram was performed 1 year and 4 months ago. Reason fo r exam: screening, asymptomatic. Full Field Digital Mammogram. [facility] MAMMO SCRN BILAT DIG WCAD/DAVID: January 25, 2019 2D/3D Procedure 3D Bilateral CC and MLO view(s) were janine en. 2D Bilateral CC and MLO view(s) were taken. Prior study comparison: September 22, 2017 , bilateral [facility] 14, 2016, bilateral mammogram, performed at [facility]. The breast tis teto is heterogeneously dense. This can limit the sensitivity and specificity of the study.. There is no suspicious mass, calcification, or architectural distortion identified. BI-RADS: Benign (BIRADS 2) Recommendation: Routine screening mammogram of both breasts in 1 year. Screening mammogram is recommended in one year or at the recommendation o f the referring provider. Signed by: RENZO CORONEL MD 01/25/19 [id number] cc: SHANNA BHATTI ZSUZSANNA P MD RADIOLOGY 2018-09-16 [facility] 16:59:00 [address] [facility] [id number] ---- Patient: BILL PATEL : 1955 Sex: F Address: [address] [place] [address] [place] [address] Unit #: [id number] RE Q SEQ #: [id number] Location: IMAGE Room #: Ordering: MADAN FALL Diagnosis: MECHANICAL FALL R /O FX RT HIP ---- HIP RIGHT 2 VIEWS WITH PELVIS History: MECHANICAL FALL R/O FX RT HIP MECHANICAL FALL R/O FX RT HIP 2 views were obtai joann. The mineralization is normal. There is no fracture or malalignment. There is no dislocati on. Soft tissues are unremarkable. Impression: No acute osseous abnormality. Final report electronically signed by: Gisell Carbajal MD Signed by: GISELL CARBAJAL II, MD 09/16/18 [id number] cc: GISELL CARBAJAL II, MD, BRUCE PA POCT Glucose 2018-06-10 16:55:00 Test Item Value Reference Range Comments Glucose, POC (test code = Glucose, POC) 105 mg/dL 65- 99 m g/dL Lathe Scalper Operator ID (test code = Lathe Scalper Operator ID) Marla Moyer POCT [id number] 13:01:00 Test Item Value Reference Range Comments Glucose, POC (test code = Glucose, POC) 87 mg/dL 65- 99 m g/dL Lathe Scalper Operator ID (test code = Lathe Scalper Operator ID) Hetal Mancini POCT Urinalysis [id number] 10:39:00 Test Item Value Reference Range Comments Spec [place]/POC (test code = Spec [place]/POC) 1.015 1.003-1.030 PH/POC (test code = PH/POC) 5 5.0-9.0 Leuk Esterase/POC (test code = Leuk Esterase/POC) Trace Negative Nitrite/POC (test code = Nitrite/POC) Negative Negative Protein/POC (test code = Protein/POC) Negative Negative UA Glucose/POC (test code = UA Glucose/POC) Negative Nega tive Ketones, POC (test code = Ketones, POC) Negative Negative Bilirubin/POC (test code = Bilirubin/POC) Negative Negati ve Blood/POC (test code = Blood/POC) Negative Negative Urobilinogen/POC (test code = Urobilinogen/POC) 0.2 mg/dL 0.2- 1.0 mg/dL [id number] 13:14:[address] [id number] Patient: BILL PATEL : 1955 Sex: F Address: [address] [place] [address] [place] [address] Unit #: [id number] REQ SEQ #: [id number] Location: IMAGE Room #: Ordering: SHANNA LONG Diagnosis: SCREENING MAMMO Procedure Report Patient History: No known family history of cancer. Benign excisional biopsy of both breasts. No Hormone Replacement Therapy Reason for exam: screening, asymptomatic. Full Field Digital Mammogram. [facility] Mammo SCRN Bilat Digital W CAD: September 22, 2017 Bilateral CC and MLO view(s) were taken. Prior study comparison: September 05, 2016, left breast mammogram, performed at [facility]. August 14, 2016, bilateral mammogram, performed at [facility]. July 16, 2015, bilateral mammogram, performed at [facility]. The breast tissue is heterogeneously dense. This can limit the sensitivity and specificity of the study.. There are stable benign appearing calcifications in the right breast. There is no other significant finding on the study in either breast. BI-RADS: Benign (BIRADS 2) Recommendation: Routine screening mammogram of both breasts in 1 year. Screening mammography is recommended in one year or at the recommendation of the referring provider. This examination was reviewed with a Computer Aided Breast Cancer Detection System. Signed by: TERRI MONTOYA MD 09/22/17 1313 cc: SHANNA BHATTI MICHAEL G [facility] [id number] 11:31:00 Test Item Value Reference Range Comments POC Glucose (test code = POC Glucose) 88 74-106 Vozqnbmijt7946-59-96 05:44:00 Test Item Value Reference Range Comments Blood hemoglobin measurement (mass/volume) (test code 9.9 11.4-14.4 = 718-7) Lodbdywlba1118-40-58 05:44:00 Test Item Value Reference Range Comments Automated blood hematocrit (volume fraction) (test 30.0 33.3-41.4 code = 4544-3) White Blood Wekfs4572-09-06 12:20:00 Test Item Value Reference Range Comments Blood leukocytes automated count (number/volume) (test 5.9 3.6-11.1 code = 6690-2) Red Blood Adzft1617-71-93 12:20:00 Test Item Value Reference Range Comments Blood erythrocytes automated count (number/volume) 4.06 3.69-4.88 (test code = 789-8) Mean Corpuscular Bmhorv5541-81-60 12:20:00 Test Item Value Reference Range Comments Automated erythrocyte mean corpuscular volume (test 91.4 79.3-94.8 code = 787-2) Mean Corpuscular Stirllrgxs4135-43-88 12:20:00 Test Item Value Reference Range Comments Automated erythrocyte mean corpuscular hemoglobin 30.2 26.8-33.2 (mass per erythrocyte) (test code = 785-6) Mean Corpuscular Hemoglobin Vpuffcb5730-53-36 12:20:00 Test Item Value Reference Range Comments Automated erythrocyte mean corpuscular hemoglobin 33.0 33.5-35.5 concentration measurement (mass/volume) (test code = 786-4) Red Cell Distribution Uxwtv6930-78-91 12:20:00 Test Item Value Reference Range Comments Automated erythrocyte distribution width ratio (test 13.8 12.0-15.1 code = 788-0) Platelet Jfkaq7253-61-49 12:20:00 Test Item Value Reference Range Comments Automated blood platelet count (count/volume) (test 247 165353 code = 777-3) Mean Platelet Pbmusw8930-64-52 12:20:00 Test Item Value Reference Range Comments Automated blood platelet mean volume measurement (test 8.9 7.5-10.6 code = 52209-7) Neutrophils (%) (Auto)2017-08-25 12:20:00 Test Item Value Reference Range Comments Automated blood neutrophil count as percentage of 66.0 43.2-71.5 total leukocytes (test code = 770-8) Lymphocytes (%) (Auto)2017-08-25 12:20:00 Test Item Value Reference Range Comments Automated blood lymphocyte count as percentage of 23.3 16.8-43.4 total leukocytes (test code = 736-9) Monocytes (%) (Auto)2017-08-25 12:20:00 Test Item Value Reference Range Comments Automated blood monocyte count as percentage of total 7.6 4.6-12.4 leukocytes (test code = 5905-5) Eosinophils (%) (Auto)2017-08-25 12:20:00 Test Item Value Reference Range Comments Automated blood eosinophil count as percentage of 2.2 0.7-7.8 total leukocytes (test code = 713-8) Basophils (%) (Auto)2017-08-25 12:20:00 Test Item Value Reference Range Comments Automated blood basophil count as percentage of total 0.9 0.2-1.2 leukocytes (test code = 706-2) Neutrophils # (Auto)2017-08-25 12:20:00 Test Item Value Reference Range Comments Blood neutrophils automated count (number/volume) 3.9 1.9-7.2 (test code = 751-8) Lymphocytes # (Auto)2017-08-25 12:20:00 Test Item Value Reference Range Comments Automated blood lymphocyte count (number/volume) (test 1.4 1.1-2.7 code = 731-0) Monocytes # (Auto)2017-08-25 12:20:00 Test Item Value Reference Range Comments Blood monocytes automated count (number/volume) (test 0.4 0.3-0.8 code = 742-7) Eosinophils # (Auto)2017-08-25 12:20:00 Test Item Value Reference Range Comments Automated blood eosinophil count (test code = 711-2) 0.1 0.0-0.5 Basophils # (Auto)2017-08-25 12:20:00 Test Item Value Reference Range Comments Automated blood basophil count (count/volume) (test 0.1 0.0-0.1 code = 704-7) Blood Urea Rlivzsoy3550-42-70 12:20:00 Test Item Value Reference Range Comments BUN (test code = 052771690) 19 9.8-20.1 Jftqxidzhf5579-62-16 12:20:00 Test Item Value Reference Range Comments Creatinine blood (test code = 869038100) 0.90 0.57-1. 11 YNPJGBXDQE1004-34-19 11:06:[address] [address] Patient: BILL PATEL : 1955 Sex: F Address: [address] [place] [address] [place] [address] Unit #: [id number] [facility] SEQ #: [id number] Location: IMAGE Room #: Ordering: WILLIE ALFARO MD Diagnosis: L BREAST DENSITY MAMMO SINGLE VIEW LEFT DIGITAL, US BREAST LEFT LIMITED Clinical Information: L BREAST DENSITY EXAM: Diagnostic Mammogram, Digital LSCC, LSMLO, LML and Tomosynthesis [id number] EXAM DATE AND TIME:09/05/2016 10:43 AM PRIOR EXAM(S): 08/14/2016, 07/16/2015, 07/11/2014, 07/06/2013, 06/29/2012, 06/13/2011. TISSUE DENSITY: The breast tissue is heterogeneously dense (51% - 75%) R2 image [employer] Computer Aided Detection (CAD) was utilized. FINDINGS: The spot compression views and Tomosynthesis demonstrate a small circumscribed benign-appearing nodule in the posterior medial left breast. There is otherwise no evidence of a suspicious abnormality. ULTRASOUND: Directed ultrasound of the left breast demonstrates a 4.2 x 3.5 x 3.6 mm cyst in the 9:00 position, 6.2 cm fromthe nipple corresponding to the mammogram finding. There is otherwise no evidence of a suspicious abnormality. ASSESSMENT: ACR BI-RADS 2 - Benign. Patient was notified of results by letter. RECOMMENDATION: Routine screening mammogram in 1 Year BI-RADS 2 -- benign findings Final report electronically signed by: Willie Alfaro MD Signed by: WILLIE ALFARO MD 09/05/16 [id number] 11:06:[address] [address] Patient: BILL PATEL : 1955 Sex: F Address: [address] [place] [address] [place] [address] Unit #: [id number] SEQ #: [id number] Location: IMAGE Room #: Ordering: WILLIE ALFARO MD Diagnosis: L BREAST DENSITY MAMMO SINGLE VIEW LEFT DIGITAL, US BREAST LEFT LIMITED Clinical Information: L BREAST DENSITY EXAM: Diagnostic Mammogram, Digital LSCC, LSMLO, LML and Tomosynthesis [id number] EXAM DATE AND TIME:09/05/2016 10:43 AM PRIOR EXAM(S): 08/14/2016, 07/16/2015, 07/11/2014, 07/06/2013, 06/29/2012, 06/13/2011. TISSUE DENSITY: The breast tissue is heterogeneously dense (51% - 75%) R2 image [employer] Computer Aided Detection (CAD) was utilized. FINDINGS: The spot compression views and Tomosynthesis demonstrate a small circumscribed benign-appearing nodule in the posterior medial left breast. There is otherwise no evidence of a suspicious abnormality. ULTRASOUND: Directed ultrasound of the left breast demonstrates a 4.2 x 3.5 x 3.6 mm cyst in the 9:00 position, 6.2 cm fromthe nipple corresponding to the mammogram finding. There is otherwise no evidence of a suspicious abnormality. ASSESSMENT: ACR BI-RADS 2 - Benign. Patient was notified of results by letter. RECOMMENDATION: Routine screening mammogram in 1 Year BI-RADS 2 -- benign findings Final report electronically signed by: Willie Alfaro MD Signed by: WILLIE ALFARO MD 09/05/16 [id number] 15:34:[address] [id number] Patient: BILL PATEL : 1955 Sex: F Address: [address] [place] [address] [place] [address] Unit #: [id number] [facility] SEQ #: [id number] Location: IMAGE Room #: Ordering: YOLANDA LONG Diagnosis: SCREENING REMBERTO --------- MAMMO SCRN BILAT DIGITAL W CAD History: SCREENING REMBERTO SCREENING REMBERTO Clinical: Screening Technique: Bilateral digital mammogram. CC and MLO views are performed in each breast.Computer aided detection performed. Prior Studies: 07/16/2015, 03/01/2014. Findings: Asymmetric densities in the medial slightly upper aspect of the left breast posteriorly about the T9 to the nipple. Spot compression views and 3 tomography and ultrasound are needed.. There is no suspicious mass, calcification or distortion otherwise. Breast tissue is heterogeneously dense.. Impression: ACR Category 0: Incomplete. Needs additional imaging evaluation. Recommendation: Recall for additional imaging. PATIENT NOTIFIED BY LETTER. BI-RADS 0 -- incomplete assessment Final report electronically signed by: Gisell Carbajal MD Signed by: GISELL CARBAJAL II, MD 08/14/16 1529RADIOLOGY 2016-05-30 19:06:[address] [id number] Patient: BILL PATEL : 1955 Sex: F Address: [address] [place] [address] [place] [address] [id number] Unit #: [id number] [facility] SEQ #: [id number] Location: [facility] Room #: Ordering: YOLANDA LONG Diagnosis: [id number] Left foot, 3 views History: Metatarsalgia Findings: The DIP joints are not well seen due to the toe position. There is no evidence of articular space narrowing. There is diffuse osteopenia. There is a minimal calcaneal spur. No acute fracture or dislocation. No focal lytic or sclerotic osseous abnormality. The articular spaces are within normal limits. No radiopaque foreign bodies. IMPRESSION: 1. No acute fracture or dislocation 2. Calcaneal spur Final report electronically signed by: CINTHYA Arriazaigned by: DEYANIRA GAN MD 05/30/16 0817 Assessments Condition Name Status Diagnosis Date Treating Clinici an Acquired spondylolisthesis Active 2020-05-30 13:24:53 Lumbar disc prolapse with radiculopathy Active 14:46:31 Lumbar spondylolisthesis Active 2020-05-28 14:46:34 Low back pain Active 2020-05-28 14:46:33 Degeneration of lumbar intervertebral Active 2020-05-30 13:24:53 disc Lumbago with sciatica Active 2020-05-30 13:24:53 Low back pain Active 2020-05-24 15:47:01 Low back pain Active 2020-05-22 09:55:00 Low back pain Active 2020-05-15 15:18:56 Low back pain Active 2020-05-14 16:11:32 Degeneration of lumbosacral Active 2020-05-14 16:11:32 intervertebral disc Lumbosacral neuritis Active 2020-05-14 16:11:32 Low back pain Active 2020-05-07 16:30:41 Low back pain 2020-05-03 14:31:46 Lumbosacral spondylosis without 2020-04-02 16:11 :29 myelopathy Low back pain 2020-04-02 16:11:20 Degeneration of lumbosacral Active 2020-04-02 16:11:19 intervertebral disc Long-term drug therapy 2020-04-02 15:38:58 Low back pain Active 2020-03-27 13:16:57 Lumbar spondylolisthesis 2020-03-27 14:09:24 Impaired glucose tolerance Active 2020-01-20 14:01:59 Hypothyroidism Active 2020-01-20 14:02:02 Body mass index 25-29 - overweight Active 2020-01-24 10 :33:24 Postmenopausal osteoporosis Active 2020-01-24 12:06:30 Lumbar radiculopathy Active 2020-01-20 16:38:59 GERD without esophagitis Active Hypothyroidism, unspecified Active Hyperlipidemia Active Type 2 diabetes mellitus with Active unspecified complications Low back pain Active 2019-12-21 13:55:45 Degeneration of lumbosacral Active 2019-12-21 13:55:46 intervertebral disc Lumbosacral neuritis Active 2019-12-21 13:55:47 Low back pain Active 2019-10-25 11:54:30 Degeneration of lumbosacral Active 2019-10-25 11:54:31 intervertebral disc Lumbosacral neuritis Active 2019-10-25 11:54:32 Low back pain Active 2019-09-22 16:05:44 Degeneration of lumbosacral Active 2019-09-22 16:05:44 intervertebral disc Lumbosacral neuritis Active 2019-09-22 16:05:45 Low back pain Active 2019-08-30 11:11:26 Degeneration of lumbosacral Active 2019-08-30 11:11:26 intervertebral disc Lumbosacral neuritis Active 2019-08-30 11:11:27 Osteopenia Active 2019-08-18 10:22:44 Varicose veins of lower extremity Active 2019-07-04 17: 14:57 Peripheral arteriovenous malformation Active 2019-07-04 17:15:03 Cellulitis Active 2019-07-04 17:15:13 GERD without esophagitis Active Hyperlipidemia Active Hypothyroidism, unspecified Active Impaired fasting glucose Active Abnormal finding of blood chemistry Active Other specified disorder of bone Active density GERD without esophagitis Active Hyperlipidemia Active Hypothyroidism, unspecified Active Impaired fasting glucose Active 2019-06-23 00:00:00 Cellulitis Active 2019-06-20 09:20:05 Varicose veins of lower extremity Active 2019-06-20 17: 02:33 Varicose veins of lower extremity Active 2019-05-18 17: 09:17 Impaired glucose tolerance Active 2019-03-22 10:02:12 Hypothyroidism Active 2019-03-22 10:02:13 Abdominal bloating Active 2019-03-22 10:44:44 Chronic constipation Active 2019-03-22 10:44:49 Varicose veins of lower extremity Active 2019-03-01 09: 08:55 Hypothyroidism, unspecified Active Hyperlipidemia Active GERD without esophagitis Active Encounter for screening mammogram for Active Ca of breast Impaired fasting glucose Active Impaired glucose tolerance Active 2018-12-14 09:50:49 Hypothyroidism Active 2018-12-14 09:50:50 Varicose veins of lower extremity Active 2018-12-01 15: 27:27 Hypothyroidism, unspecified Active Hypothyroidism, unspecified Active Impaired fasting glucose Active Abnormal finding of blood chemistry Active Hyperlipidemia, unspecified Active Impaired fasting glucose Active Hyperlipidemia, unspecified Active Hypothyroidism, unspecified Active Abnormal finding of blood chemistry Active Encounter for adult annual physical Active exam w/ abnormal finding Hypothyroidism Active Hyperlipidemia Active Impaired fasting glucose Active UTI Active Encounter for screening mammogram for Active Ca of breast Body mass index (BMI) 26.0-26.9, adult Active 2017-07-18 2 00:00:00 Cervical stump prolapse Active Exposure to varicella Active Abnormal Pap smear of cervix Active Hyperlipidemia Active Hypothyroidism Active Impaired fasting glucose Active GERD without esophagitis Active Other specified disorder of bone Active density Abnormal Pap smear of cervix Active Encounter for screening colonoscopy Active Abnormal Pap smear of cervix Active Costochondritis Active Chest pain Active Encntr for general adult medical exam Active w/o abnormal findings Hyperlipidemia Active Hypothyroidism Active Impaired fasting glucose Active Encounter for screening colonoscopy Active Encounter for screening mammogram for Active Ca of breast Body mass index (BMI) 27.0-27.9, adult Active 8 00:00:00 Metatarsalgia, left foot Active Hyperlipidemia Active Impaired fasting glucose Active Hypothyroidism Active GERD without esophagitis Active Encntr for general adult medical exam Active w/o abnormal findings Impaired fasting glucose Active Hyperlipidemia Active Hypothyroidism Active GERD without esophagitis Active Cellulitis of buttock Active Cellulitis of groin Active Body mass index (BMI) 26.0-26.9, adult Active 2015-07-17 0 00:00:00 Abscess Active Abnormality, respiratory NEC Active 2015-04-30 00:00:00 Encounters Start End Encounter Admission Attending Care Care Encounter Date/Time Date/Time Type Type Clinicians Facility Department ID 2020-05-29 2020-05-29 Zainab Seaman [id number] 00:00:00 00:00:00 [facility] Aleyda DIAZ: [address] [place] [address], Ph. [phone] 2020-05-24 2020-05-24 Sara Seaman [place] 8543 00:00:00 00:00:00 [facility] 008 [facility] -DPT: [address] [place] [address], Ph. 2020-05-22 2020-05-22 Sara Goldent [place] 8543 00:00:00 00:00:00 [facility] 006 [facility] -DPT: [address] [place] [address], Ph. 2020-05-15 2020-05-15 Sara Seaman [place] 8543 00:00:00 00:00:00 [facility] 929 [facility] -DPT: [address] [place] [address], Ph. 2020-05-14 2020-05-14 Trent Montejo 116 00:00:00 00:00:00 MD Abdiaziz: [facility] [address] [facility], [address], [place] [address], Ph. 2020-05-07 2020-05-07 Sara Goldent [place] 8543 00:00:00 00:00:00 [facility] 921 [facility] -DPT: [address] [place] [address], Ph. 2020-05-04 2020-05-04 Sara Fitzpatrickeret [place] 8543 00:00:00 00:00:00 [facility] 918 [facility] -DPT: [address] [place] [address], Ph. 2020-04-02 2020-04-02 Trent Montejo 116 [id number] 00:00:00 00:00:00 MD Abdiaziz: [facility] 17 [address] [facility] [address], [place] [address], Ph. 2020-03-27 2020-03-27 Deyanira Goldent [id number] _[id number] 00:00:00 00:00:00 Day: 3714 Surgical Surgical 811 [facility] [address], [place] [address], Ph. 2020-01-24 2020-01-24 Liza Rj Urszula Seaman [id number] _[id number] 00:00:00 00:00:00 JEWEL PayneC: Medical Medical 0609 [address] [facility], [address], [place] [address], Ph. 2020-01-23 2020-01-23 Outpatient Addie, SBFP SBFP [id number] 11:47:00 11:47:00 Shanna 2020-01-23 2020-01-23 Outpatient SBFP SBFP [id number] 11:47:00 11:47:00 2020-01-20 2020-01-20 Chester Montejo [place] [id number] _[id number] 00:00:00 00:00:00 [facility] [address] [place], : [facility] [address] [facility], [address], [place] [address], Ph. 2019-12-29 2019-12-29 Outpatient Vida, SBFP SBFP [id number] 14:06:00 14:06:00 Shanna 2019-12-27 2019-12-27 Outpatient SBFP SBFP [id number] 09:30:00 09:30:00 2019-12-27 2019-12-27 Outpatient Addie, SBFP SBFP [id number] 09:30:00 09:30:00 Shanna 2019-12-21 2019-12-21 Joyce Kaylee [facility] [id number] _[id number] 00:00:00 00:00:00 Juan F, [facility] 06 PA-C: [address] [facility] [address], [place] [address], Ph. 2019-10-25 2019-10-25 Trent Lawrence [facility] [id number] 00:00:00 00:00:00 MD Abdiaziz: [facility] 10 [address], [place] [address], Ph. 2019-10-06 2019-10-06 Outpatient SBFP SBFP [id number] 00:00:00 00:00:00 2019-09-22 2019-09-22 Joyce Montejo [place] [id number] _[id number] 00:00:00 00:00:00 Juan F, [facility] 06 PA-C: [address], [place] [address], Ph. 2019-08-30 2019-08-30 Trent Lawrence [facility] 116 2_ 00:00:00 00:00:00 MD Abdiaziz: [facility] 14 [address], [place] [address], Ph. 2019-08-18 2019-08-18 Hetal Seaman [id number] 00:00:00 00:00:00 [facility] 0102 MD: [facility], [facility] Group, [facility] Medical [facility], [place] [address], Ph. 2019-08-03 2019-08-03 Outpatient SBFP SBFP [id number] 13:06:00 13:06:00 2019-07-08 2019-07-08 Outpatient SBFP SBFP [id number] 09:17:00 09:17:00 2019-07-04 2019-07-04 Ethan Seaman [id number] _[id number] 00:00:00 00:00:00 MD Marcial: Surgical Surgical [address] [place] [address], Ph. 2019-06-28 2019-06-28 Outpatient SBFP SBFP [id number] 08:45:00 08:45:00 2019-06-23 2019-06-23 Outpatient SBFP SBFP [id number] 08:30:00 08:30:00 2019-06-20 2019-06-20 Ethancoleman Fitzpatrickeret [place] [id number] _ 00:00:00 00:00:00 MD Marcial: Surgical Surgical [address] [place] [address], Ph. 2019-05-18 2019-05-18 Ethan [place] Urszula [place] [id number] _ 00:00:00 00:00:00 MD Marcial: Surgical Surgical [address] [place] [address], Ph. 2019-05-03 2019-05-03 Outpatient SBFP SBFP [id number] 10:34:00 10:34:00 2019-04-19 2019-04-19 Outpatient SBFP SBFP [id number] 10:23:00 10:23:00 2019-03-22 2019-03-22 Outpatient SHAYNA PAYNE, [facility] [id number] 11:35:00 11:35:00 LIZA 8 2019-03-22 2019-03-22 Liza Goldent [id number] _[id number] 00:00:00 00:00:00 KOMAL Payne: [place] [address] [facility], [facility], [place] [address], Ph. 2019-03-01 2019-03-01 Ethan Canshayy Fitzpatrickeret [place] [id number] _[id number] 00:00:00 00:00:00 MD Marcial: Surgical Surgical [address] [place] [address], Ph. 2019-01-25 2019-01-25 Outpatient SHAYNA BHATTI, [facility] [id number] 10:14:00 10:14:00 SHANNA 0 2018-12-21 2018-12-21 Outpatient SBFP SBFP [id number] 10:00:00 10:00:00 2018-12-14 2018-12-14 Liza A Urszula Fitzpatrickeret [id number] _[id number] 00:00:00 00:00:00 KOMAL Payne: Medical Medical [address] [facility] [address] [place] [address], Ph. 2018-12-01 2018-12-01 Ethan Seaman [id number] _[id number] 00:00:00 00:00:00 MD Marcial: Surgical Surgical [address] [place] [address], Ph. 2018-09-16 2018-09-16 Outpatient CYRIL FRANKS [facility] [id number] 15:53:00 15:53:00 MADAN 1 2018-07-22 2018-07-22 Outpatient SBFP SBFP [id number] 11:30:00 11:30:00 2018-07-20 2018-07-20 Outpatient EL [facility] [id number]_ 11:50:25 12:56:36 [id number] 2018-07-20 2018-07-20 Outpatient [facility] [id number] 11:50:25 12:56:36 2018-07-20 2018-07-20 Outpatient EL [facility] [id number] 00:00:00 00:00:00 [id number] 2018-07-20 Outpatient [facility] [id number] 00:00:00 00:00:00 2018-06-22 2018-06-22 Outpatient SBFP SBFP [id number] 10:30:00 10:30:00 2018-06-10 2018-06-11 X EL GARRIDO-BABIN [facility] RAF [id number]_ 11:02:46 09:13:00 DURAN [id number] 2018-06-10 2018-06-11 Outpatient [facility] [id number] 11:02:46 09:13:00 2018-06-11 2018-06-11 Outpatient [facility] [id number] 00:00:00 00:00:00 2018-06-10 2018-06-10 S EL G[facility]O-BABIN [facility] [id number]_ 14:00:00 14:00:00 DURAN [id number] 2018-06-10 2018-06-10 S EL G[facility]-BABIN [facility] RAF [id number]_ 13:15:00 13:15:00 DURAN [id number] 2018-06-10 2018-06-10 S [facility] [id number] _ 00:00:00 00:00:00 [id number] 2018-06-04 Outpatient EL [facility] [id number]_ 10:52:23 23:59:00 [id number] 2018-06-04 2018-06-04 Outpatient EL [facility] [id number]_ 09:18:36 10:24:28 [id number] 2018-06-04 2018-06-04 Outpatient [facility] [id number] 09:18:36 10:24:28 2018-06-04 2018-06-04 Outpatient EL [facility] [id number]_ 00:00:00 00:00:00 [id number] 2018-06-04 Outpatient EL [facility] [id number]_ 00:00:00 00:00:00 [id number] 2018-06-04 S [facility] [id number] _ 00:00:00 00:00:00 [id number] 2018-04-14 Outpatient EL [facility] [id number]_ 12:59:32 13:39:04 [id number] 2018-04-14 2018-04-14 Outpatient [facility] [id number] 12:59:32 13:39:04 2018-04-14 2018-04-14 Outpatient EL [facility] [id number]_ 10:47:55 12:08:21 [id number] 2018-04-14 2018-04-14 Outpatient [facility] [id number] 10:47:55 12:08:21 2018-04-14 2018-04-14 Outpatient EL [facility] [id number]_ 00:00:00 00:00:00 [id number] 2018-04-06 Outpatient EL [facility] [id number]_ 00:00:00 00:00:00 [id number] 2018-03-01 Outpatient EL [facility] [id number]_ 09:36:36 11:58:16 [id number] 2018-03-01 2018-03-01 Outpatient [facility] [id number] 09:36:36 11:58:16 2018-03-01 2018-03-01 Outpatient EL [facility] [id number]_ 00:00:00 00:00:00 [id number] 2018-02-26 Outpatient [facility] [id number] 00:00:00 00:00:00 2017-12-14 2017-12-14 Outpatient SBFP SBFP [id number] 10:00:00 10:00:00 2017-09-22 2017-09-22 Outpatient EL ADDIE, [facility] [id number] 10:29:00 10:29:00 SHANNA 0 2017-09-01 2017-09-02 Inpatient EL AB-[facility] [id number] 15:54:00 14:20:00 GYPSY RODRIGUES 2 2017-08-07 2017-08-07 Outpatient SBFP SBFP [id number] 10:15:00 10:15:00 2017-07-14 2017-07-14 Outpatient SBFP SBFP [id number] 10:00:00 10:00:00 2017-04-10 2017-04-10 Outpatient EL POP, ANCA [facility] [id number] 00:16:00 00:16:00 5 2017-01-29 2017-01-29 Outpatient SBFP SBFP [id number] 10:15:00 10:15:00 2016-09-05 2016-09-05 Outpatient SHAYNA ALFARO, [facility] [id number] 10:16:00 10:16:00 WILLIE 4 2016-09-01 2016-09-01 Outpatient SBFP SBFP [id number] 10:54:00 10:54:00 2016-08-14 2016-08-14 Outpatient EL PAINTER, [facility] [id number] 13:49:00 13:49:00 YOLANDA 7 2016-08-14 2016-08-14 Outpatient SBFP SBFP [id number] 10:30:00 10:30:00 2016-08-07 2016-08-07 Outpatient EL HELMamta, [facility] [id number] 10:57:00 10:57:00 BEATRIZ 5 2016-08-07 2016-08-07 Outpatient SBFP SBFP [id number] 09:45:00 09:45:00 2016-07-24 2016-07-24 Outpatient SBFP SBFP [id number] 11:15:00 11:15:00 2016-05-30 2016-05-30 Outpatient [facility] V0000 [id number] 17:01:00 17:01:00 YOLANDA Eastman 2016-05-30 2016-05-30 Outpatient SBFP SBFP [id number] 15:00:00 15:00:00 2016-02-07 2016-02-07 Outpatient SBFP SBFP [id number] 09:15:00 09:15:00 2015-08-01 2015-08-01 Outpatient SBFP SBFP [id number] 10:00:00 10:00:00 2015-07-26 2015-07-26 Outpatient SBFP SBFP [id number] 14:45:00 14:45:00 2015-05-09 2015-05-09 Outpatient SBFP SBFP [id number] 10:45:00 10:45:00 2015-05-04 2015-05-04 Outpatient SBFP SBFP [id number] 15:30:00 15:30:00 2015-04-30 2015-04-30 Outpatient SBFP SBFP [id number] 09:45:00 09:45:00 2015-02-26 2015-02-26 Outpatient SBFP SBFP [id number] 16:00:00 16:00:00 2015-01-17 2015-01-17 Outpatient SBFP SBFP [id number] 08:30:00 08:30:00 2014-07-31 2014-07-31 Outpatient SBFP SBFP [id number] 15:45:00 15:45:00 2014-07-25 2014-07-25 Outpatient SBFP SBFP [id number] 09:15:00 09:15:00 2014-07-07 2014-07-07 Outpatient SBFP SBFP [id number] 16:00:00 16:00:00 2014-07-04 2014-07-04 Outpatient SBFP SBFP [id number] 14:00:00 14:00:00 2014-05-30 2014-05-30 Outpatient SBFP SBFP [id number] 16:30:00 16:30:00 2014-05-10 2014-05-10 Outpatient SBFP SBFP [id number] 11:00:00 11:00:00 2014-02-27 2014-02-27 Outpatient SBFP SBFP [id number] 17:15:00 17:15:00 2014-02-21 2014-02-21 Outpatient SBFP SBFP [id number] 14:00:00 14:00:00 2014-01-24 2014-01-24 Outpatient SBFP SBFP [id number] 09:45:00 09:45:00 2014-01-17 2014-01-17 Outpatient SBFP SBFP [id number] 11:45:00 11:45:00 2013-07-21 2013-07-21 Outpatient SBFP SBFP [id number] 08:15:00 08:15:00 2013-05-20 2013-05-20 Outpatient SBFP SBFP [id number] 10:15:00 10:15:00 2013-05-17 2013-05-17 Outpatient SBFP SBFP [id number] 10:00:00 10:00:00 2012-12-03 2012-12-03 Outpatient SBFP SBFP [id number] 10:00:00 10:00:00 2012-11-30 2012-11-30 Outpatient SBFP SBFP [id number] 08:30:00 08:30:00 2012-05-28 2012-05-28 Outpatient SBFP SBFP [id number] 10:45:00 10:45:00 2012-05-21 2012-05-21 Outpatient SBFP SBFP [id number] 10:00:00 10:00:00 2012-05-18 2012-05-18 Outpatient SBFP SBFP [id number] 09:30:00 09:30:00 2012-01-16 2012-01-16 Outpatient SBFP SBFP [id number] 09:00:00 09:00:00 2011-12-05 2011-12-05 Outpatient SBFP SBFP [id number] 11:00:00 11:00:00 2011-11-21 2011-11-21 Outpatient SBFP SBFP [id number] 11:00:00 11:00:00 2011-11-18 2011-11-18 Outpatient SBFP SBFP [id number] 10:15:00 10:15:00 2011-05-23 2011-05-23 Outpatient SBFP SBFP [id number] 09:00:00 09:00:00 2011-05-20 2011-05-20 Outpatient SBFP SBFP [id number] 08:30:00 08:30:00 2011-04-28 2011-04-28 Outpatient SBFP SBFP [id number] 17:45:00 17:45:00 2010-11-22 2010-11-22 Outpatient SBFP SBFP [id number] 10:00:00 10:00:00 2010-11-19 2010-11-19 Outpatient SBFP SBFP [id number] 09:15:00 09:15:00 2010-06-19 2010-06-19 Outpatient SBFP SBFP [id number] 11:45:00 11:45:00 2010-05-29 2010-05-29 Outpatient SBFP SBFP [id number] 09:15:00 09:15:00 2010-05-21 2010-05-21 Outpatient SBFP SBFP [id number] 10:00:00 10:00:00 2010-01-31 2010-01-31 Outpatient SBFP SBFP [id number] 15:00:00 15:00:00 2009-12-05 2009-12-05 Outpatient SBFP SBFP [id number] 10:30:00 10:30:00 2009-11-21 2009-11-21 Outpatient SBFP SBFP [id number] 10:00:00 10:00:00 2009-07-24 2009-07-24 Outpatient SBFP SBFP [id number] 16:15:00 16:15:00 2009-05-17 2009-05-17 Outpatient SBFP SBFP [id number] 09:00:00 09:00:00 2009-05-10 2009-05-10 Outpatient SBFP SBFP [id number] 09:30:00 09:30:00 2009-04-20 2009-04-20 Outpatient SBFP SBFP [id number] 09:00:00 09:00:00 Family History Family Member Diagnosis Comments Start Date Stop Date Father [id number] 2015-05-05 00:00:00 00:00:00 Father Hypertension (Cause Of 2009-04-20 00:00:0 0 2009-04-20 ) 00:00:00 Sister Alive and well 2009-04-20 00:00:00 04-20 00:00:00 Mother Alive and well 2009-04-20 00:00:00 04-20 00:00:00 Immunizations Ordered Filled Date Status Comments Refusal Immunization Name Immunization Name Reason Influenza, 2019-06-23 Completed Source: New injectable, 00:00:00 Immunization trivalent, Record adjuvanted, preservative free, 65 years+, Fluad Pneumococcal 2019-06-23 Completed Source: New conjugate PCV 13 00:00:00 Immunization Record pneumococcal 2019-06-17 Completed polysaccharide 00:00:00 PPV23 influenza, 2019-06-17 Completed injectable, 00:00:00 quadrivalent Influenza, 2018-06-22 Completed Source: New injectable, MDCK, 00:00:00 Immunization preservative free Record Flucelvax Quad Y influenza, 2018-05-24 Completed unspecified 00:00:00 formulation influenza, 2017-09-17 Completed injectable, 00:00:00 quadrivalent FLU VACCINE 2017-07-14 Cancelled Source: New 00:00:00 Immunization Record influenza, 2011-10-16 Completed seasonal, 00:00:00 injectable Tdap 2009-12-05 Completed Source: New 00:00:00 Immunization Record Vaccination Unknown Completed Payers Payer Name Policy Type Policy Number Effective Date Expiration D ate BCDAKOTAH LUTZ [id number] 2017 00:00:00 OPTIONS/PPO/ADV Plan of Treatment Planned Activity Planned Date Details Comments Future Scheduled Test [code = ] Future Scheduled Test [code = ] Future Scheduled Test [code = ] Future Scheduled Test [code = ] Future Scheduled Test [code = ] Future Scheduled Test [code = ] Future Scheduled Test [code = ] Future Scheduled Test [code = ] Future Scheduled Test [code = ] Future Scheduled Test [code = ] Future Scheduled Test [code = ] Future Scheduled Test [code = ] Future Scheduled Test [code = ] Future Scheduled Test [code = ] Future Scheduled Test [code = ] Future Scheduled Test [code = ] Future Scheduled Test [code = ] Future Scheduled Test [code = ] Future Scheduled Test [code = ] Future Scheduled Test [code = ] Future Scheduled Test [code = ] Future Scheduled Test [code = ] Future Scheduled Test [code = ] Future Scheduled Test [code = ] Future Scheduled Test [code = ] Future Scheduled Test [code = ] Future Scheduled Test [code = ] Future Scheduled Test [code = ] Future Scheduled Test [code = ] Future Scheduled Test [code = ] Future Scheduled Test [code = ] Future Appointment 2020-07-16 11:40:00 Trent Freed, [address] [place] [address], [address]; , [place] [address] Future Appointment 2020-07-10 13:30:00 Zainab Ray, [address] [place] [address] [address]; , [place] [address] Social History Social Habit Start Date Stop Date Comments Tobacco smoking status [facility] 2018-03-01 00:00:00 2018-03-01 00:00 :00 Smoking Status Start Date Stop Date Never Smoker Social History Observation Description Sex Female Vital Signs Vital Name Observation Time Observation Value Comments Height 2020-05-29 00:00:00 64 [in_i] BMI (Body Mass Index) 2020-05-29 00:00:00 25.7 kg/m2 Body Weight 2020-05-29 00:00:00 150 [lb_av] BP Diastolic 2020-05-14 00:00:00 77 mm[Hg] Height 2020-05-14 00:00:00 64 [in_i] BP Systolic 2020-05-14 00:00:00 113 mm[Hg] BP Diastolic 2020-04-02 00:00:00 65 mm[Hg] Height 2020-04-02 00:00:00 64 [in_i] BP Systolic 2020-04-02 00:00:00 126 mm[Hg] BP Systolic 2020-03-27 00:00:00 134 mm[Hg] Body Weight 2020-03-27 00:00:00 156 [lb_av] BP Diastolic 2020-03-27 00:00:00 84 mm[Hg] Height 2020-03-27 00:00:00 64 [in_i] BMI (Body Mass Index) 2020-03-27 00:00:00 26.8 kg/m2 Height 2020-01-24 00:00:00 62.9 [in_i] BMI (Body Mass Index) 2020-01-24 00:00:00 27.1 kg/m2 BP Systolic 2020-01-24 00:00:00 126 mm[Hg] Body Weight 2020-01-24 00:00:00 152.6 [lb_av] BP Diastolic 2020-01-24 00:00:00 80 mm[Hg] BP Diastolic 2020-01-20 00:00:00 76 mm[Hg] Height 2020-01-20 00:00:00 64 [in_i] BMI (Body Mass Index) 2020-01-20 00:00:00 24.9 kg/m2 BP Systolic 2020-01-20 00:00:00 118 mm[Hg] Body Weight 2020-01-20 00:00:00 145 [lb_av] Height 2019-12-21 00:00:00 64 [in_i] BP Diastolic 2019-10-25 00:00:00 74 mm[Hg] Height 2019-10-25 00:00:00 64 [in_i] BMI (Body Mass Index) 2019-10-25 00:00:00 24.9 kg/m2 BP Systolic 2019-10-25 00:00:00 120 mm[Hg] Body Weight 2019-10-25 00:00:00 145 [lb_av] BP Diastolic 2019-09-22 00:00:00 78 mm[Hg] Height 2019-09-22 00:00:00 64 [in_i] BMI (Body Mass Index) 2019-09-22 00:00:00 24.9 kg/m2 BP Systolic 2019-09-22 00:00:00 128 mm[Hg] Body Weight 2019-09-22 00:00:00 145 [lb_av] BP Diastolic 2019-08-30 00:00:00 77 mm[Hg] Height 2019-08-30 00:00:00 64 [in_i] BMI (Body Mass Index) 2019-08-30 00:00:00 24.9 kg/m2 BP Systolic 2019-08-30 00:00:00 138 mm[Hg] Body Weight 2019-08-30 00:00:00 145 [lb_av] Height 2019-08-18 00:00:00 62.9 [in_i] BMI (Body Mass Index) 2019-08-18 00:00:00 27.1 kg/m2 Body Weight 2019-08-18 00:00:00 152.5 [lb_av] BP Diastolic 2019-07-04 00:00:00 81 mm[Hg] Height 2019-07-04 00:00:00 64 [in_i] BP Systolic 2019-07-04 00:00:00 129 mm[Hg] BP Diastolic 2019-06-20 00:00:00 69 mm[Hg] Height 2019-06-20 00:00:00 64 [in_i] BMI (Body Mass Index) 2019-06-20 00:00:00 26.8 kg/m2 BP Systolic 2019-06-20 00:00:00 96 mm[Hg] Body Weight 2019-06-20 00:00:00 156 [lb_av] BP Diastolic 2019-05-18 00:00:00 81 mm[Hg] Height 2019-05-18 00:00:00 64 [in_i] BP Systolic 2019-05-18 00:00:00 154 mm[Hg] BP Diastolic 2019-03-22 00:00:00 68 mm[Hg] Height 2019-03-22 00:00:00 62.8 [in_i] BMI (Body Mass Index) 2019-03-22 00:00:00 26.6 kg/m2 BP Systolic 2019-03-22 00:00:00 100 mm[Hg] Body Weight 2019-03-22 00:00:00 149 [lb_av] BP Diastolic 2019-03-01 00:00:00 83 mm[Hg] Height 2019-03-01 00:00:00 64 [in_i] BMI (Body Mass Index) 2019-03-01 00:00:00 25.8 kg/m2 BP Systolic 2019-03-01 00:00:00 131 mm[Hg] Body Weight 2019-03-01 00:00:00 150.5 [lb_av] BP Diastolic 2018-12-14 00:00:00 60 mm[Hg] Height 2018-12-14 00:00:00 62.8 [in_i] BMI (Body Mass Index) 2018-12-14 00:00:00 26.2 kg/m2 BP Systolic 2018-12-14 00:00:00 100 mm[Hg] Body Weight 2018-12-14 00:00:00 147 [lb_av] BP Diastolic 2018-12-01 00:00:00 62 mm[Hg] Height 2018-12-01 00:00:00 64 [in_i] BMI (Body Mass Index) 2018-12-01 00:00:00 25.2 kg/m2 BP Systolic 2018-12-01 00:00:00 118 mm[Hg] Body Weight 2018-12-01 00:00:00 147 [lb_av] WEIGHT 2017-09-01 15:54:00 68 kg HEIGHT 2017-09-01 15:54:00 160.028086 cm WEIGHT 2017-09-01 14:39:00 68 kg HEIGHT 2017-09-01 14:39:00 160.475742 cm WEIGHT 2017-09-01 09:15:00 68 kg HEIGHT 2017-09-01 09:15:00 160.935529 cm WEIGHT 2017-04-10 08:45:00 69.5 kg HEIGHT 2017-04-10 08:45:00 160.490222 cm WEIGHT 2017-04-10 00:16:00 69.5 kg HEIGHT 2017-04-10 00:16:00 160.861978 cm SYSTOLIC BLOOD PRESSURE 2018-07-20 12:10:00 129 mm[Hg] DIASTOLIC BLOOD PRESSURE 2018-07-20 12:10:00 64 mm[Hg] HEART RATE 2018-07-20 12:10:00 64 /min HEIGHT 2018-07-20 12:10:00 160 cm WEIGHT 2018-07-20 12:10:00 66.679 kg SYSTOLIC BLOOD PRESSURE 2018-06-11 07:22:00 100 mm[Hg] DIASTOLIC BLOOD PRESSURE 2018-06-11 07:22:00 54 mm[Hg] HEART RATE 2018-06-11 07:22:00 58 /min BODY TEMPERATURE 2018-06-11 07:22:00 35.89 Petty RESPIRATORY RATE 2018-06-11 07:22:00 15 /min OXYGEN SATURATION 2018-06-11 07:22:00 99 % HEIGHT 2018-06-10 11:30:00 160 cm WEIGHT 2018-06-10 11:30:00 68.1 kg SYSTOLIC BLOOD PRESSURE 2018-06-04 09:43:00 123 mm[Hg] DIASTOLIC BLOOD PRESSURE 2018-06-04 09:43:00 70 mm[Hg] HEART RATE 2018-06-04 09:43:00 63 /min HEIGHT 2018-06-04 09:43:00 160 cm WEIGHT 2018-06-04 09:43:00 67.586 kg SYSTOLIC BLOOD PRESSURE 2018-04-14 13:06:00 141 mm[Hg] DIASTOLIC BLOOD PRESSURE 2018-04-14 13:06:00 88 mm[Hg] HEART RATE 2018-04-14 13:06:00 62 /min WEIGHT 2018-04-14 13:06:00 68.947 kg SYSTOLIC BLOOD PRESSURE 2018-04-14 11:02:00 141 mm[Hg] DIASTOLIC BLOOD PRESSURE 2018-04-14 11:02:00 88 mm[Hg] HEART RATE 2018-04-14 11:02:00 62 /min HEIGHT 2018-04-14 11:02:00 160 cm WEIGHT 2018-04-14 11:02:00 68.947 kg SYSTOLIC BLOOD PRESSURE 2018-03-01 10:21:00 117 mm[Hg] DIASTOLIC BLOOD PRESSURE 2018-03-01 10:21:00 69 mm[Hg] HEART RATE 2018-03-01 10:21:00 65 /min HEIGHT 2018-03-01 10:21:00 160 cm WEIGHT 2018-03-01 10:21:00 69.446 kg Hospital Discharge Instructions 1. Low back pain 2. Degeneration of lumbosacral intervertebral disc 3. Lumbosacral neuritis Discussion Note: None recorded. Patient educational handouts: No information available.1. Low back pain Discussion Note Progress Note due on 10th visit Plan of Care Certification Period is 08/03/2020 - 05/04/2020. The necessity of therapy services is demonstrated by the exam findings and functional test outcome. I certify the need for these services furnished under this plan of treatmentfor up to 90 days and while under my care. (see Physician signature below) Patient educational handouts: No information available.1. Lumbosacral spondylosis without myelopathy 2. Low back pain 3. Degeneration of lumbosacral intervertebral disc 4. Long-term drug therapy drug screen, urine drug screen, urine Discussion Note: None recorded. Patient educational handouts: No information available.1. Low back pain XR, lumbar spine 2. Lumbar spondylolisthesis Discussion Note Patient has not been doing home exercise plan and a form since she finished therapy in 2015. Discussed with patient that based on her symptoms I do not see any concern for progression from a neurologic standpoint and believe she is still dealing with instability at L4-5. Patient continues to note that standing still causes her the most back pain. Patient again notes primary complaint is back pain greater than the rightlower extremity leg pain that stops in the distal thigh. Patient will hold off on MRI at this time and just proceed with the home exercise plan following formal therapy. Patient has not seen some relief would consider MRI lumbar spine without contrast at that time. Patient educational handouts: No information available.1. Impaired glucose tolerance HbA1c (hemoglobin A1c), blood 2. Hypothyroidism 3. Body mass pqhnu01-54 - overweight eating healthy foods: care instructions 4. Postmenopausal osteoporosis Discussion Note: None recorded. Continue current medications. Continue to work on diet and exercises. Check feet and between toes daily. Wear comfortable, well-fitting shoes that do not rub your feet or crowd your toes. Get yearly dilated eye exams.Related to Type 2 diabetes mellitus with unspecified complications [id number] current measuresRelated to ShtsarlunxvnymBgo-35-4367 Eat small meals, and do not eat for 3 hours prior to lying recumbent. Avoid large, high fat meals and avoid food that my aggravate the problem.Related to GERD without everunyqquyZjk-06-9505 It is important to take your thyroid medication on an empty stomach with a full glass ofwater. Do not eat or drink anything other than water for at least 30 minutes after taking this medication.Related to Hypothyroidism, zxopxciwofhMjl-69-2785 Goals for cholesterol were discussed. Recommend at least 30 minutes of sustained exercise 4 times weekly. Low cholesterol diet advised.Related to NqyqencqnluezyTxh-46-1687 It is important to take your thyroid medication on an empty stomach with a full glass ofwater. Do not eat or drink anything other than water for at least 30 minutes after taking this medication.Related to Hypothyroidism, dsxqnricawbKpe-58-7806 Continue current measuresRelated to GERD without yqdpcvvlsftRcf-45-3795 Continue current medications. Continue to work on diet and exercises. Check feet and between toes daily. Wear comfortable, well-fitting shoes that do not rub your feet or crowd your toes. Get yearly dilated eye exams.Related to Impaired fasting glucose continue current measures CCM: Discussed enrollment in CCM with the patient to address impaired fasting glucose and hyperlipidemia. Refer to the problem list and interventions for care plan. Will sign patient up with CCM team. CCM explained to the patient today. Possible fees were explained to the patient as well.Related to GERD without vvwdrrnwzzxQuw-90-6171Ryiukvxwq on weight xrmpojvpzBsp-59-3635 It is important to take your thyroid medication on an empty stomach with a full glass ofwater. Do not eat or drink anything other than water for at least 30 minutes after taking this medication.Related to Hypothyroidism, kaiqbfygfohRhy-31-4804 Goals for cholesterol were discussed. Recommend at least 30 minutes of sustained exercise 4 times weekly. Low cholesterol diet advised.Related to ByaptachyicnydIjw-64-6263 Eat small meals, and do not eat for 3 hours prior to lying recumbent. Avoid large, high fat meals and avoid food that my aggravate the problem.Related to GERD without hoqfttyjcdkAhq-62-3874gepees EndocrinologyRelated to Impaired fasting glucose It is important to take your thyroid medication on an empty stomach with a full glass ofwater. Do not eat or drink anything other than water for at least 30 minutes after taking this medication.Related to Hypothyroidism, mizwkvxxbzyGud-76-9496 Continue current medications. Continue to work on diet and exercises. Check feet and between toes daily. Wear comfortable, well-fitting shoes that do not rub your feet or crowd your toes. Get yearly dilated eye exams.Related to Impaired fasting pymmqdvOjt-35-6737 Goals for cholesterol were discussed. Recommend at least 30 minutes of sustained exercise 4 times weekly. Low cholesterol diet advised.Related to Hyperlipidemia, gahdkynmdbiBpo-36-8938 It is important to take your thyroid medication on an empty stomach with a full glass ofwater. Do not eat or drink anything other than water for at least 30 minutes after taking this medication.Related to Hypothyroidism, unspecified It is important to take your thyroid medication on an empty stomach with a full glass ofwater. Do not eat or drink anything other than water for at least 30 minutes after taking this medication.Related to Hypothyroidism, ybpjbnagoweUzh-20-6318 Continue current medications. Continue to work on diet and exercises. Check feet and between toes daily. Wear comfortable, well-fitting shoes that do not rub your feet or crowd your toes. Get yearly dilated eye exams.Related to Impaired fasting ougiuhsVan-28-5692 Goals for cholesterol were discussed. Recommend at least 30 minutes of sustained exercise 4 times weekly. Low cholesterol diet advised.Related to Hyperlipidemia, ejkytnyiarlLqz-73-1990 It is important to exercise for at least 30 minutes 4 days a week. Avoid processed foodsand more than 2000 mg. of Sodium in your diet.Related to Encounter for adult annual physical exam w/abnormal pnptlhdBxt-51-5876 Goals for cholesterol were discussed. Recommend at least 30 minutes of sustained exercise 4 times weekly. Low cholesterol diet advised.Related to Hyperlipidemia Continue current medications. Continue to work on diet and exercises. Check feet and between toes daily. Wear comfortable, well-fitting shoes that do not rub your feet or crowd your toes. Get yearly dilated eye exams.Related to Impaired fasting iwhizwfQxf-49-3585 It is important to take your thyroid medication on an empty stomach with a full glass ofwater. Do not eat or drink anything other than water for at least 30 minutes after taking this medication.Related to DothnntppdjcarHlx-10-0385 Take all of the prescribed antibiotic. Increase fluid intake. Return to office for persistent or worsening symptoms or if you develop fever or chills. Related to LZKIac-60-3749Bwkwoks management education, guidance, and counselingRelated to Body mass index (BMI) 26.0-26.9, kgtzhPcr-90-5306Lttvdo follow up with [facility] to make sure this is resolved.Related to Abnormal Pap smear of ntcbeaBwb-06-1650 I am ordering a blood lever to make sure you have had the chicken pox and can get the shingles vaccineRelated to Exposure to lmascjknbTwt-90-7011N am referring you to Gynecology for evaluation, return as needed for any concernsRelatedto Cervical stump vwawekghTse-92-5908Aum had a adenomatous polyp on your first colonoscopy on 04/15/2007, no polyps on the lastcolonoscopy in 2010. Due to the hx of polyps you need another colonoscopy now.Related to Encounter for screening oefwjdqqtncAtn-05-1951Vzt will need a repeat Pap smear in JulyRelated to Abnormal Pap smear of yrpkidWgg-29-3224 Eat small meals, and do not eat for 3 hours prior to lying recumbent. Avoid large, high fat meals and avoid food that my aggravate the problem.Related to GERD without gbajiryqrrcPps-81-0846 Work on diet and exercises. Avoid simple carbohydrates. Regular sustained exercise for 30 minutes 4 days weekly can help stabilize your sugars.Related to Impaired fasting tqkznfaJyi-54-2528 Continue current medications.Related to QwmjhtglnrhvkqEui-74-8446 Goals for cholesterol were discussed. Recommend at least 30 minutes of sustained exercise 4 times weekly. Low cholesterol diet advised.Related to MktshbzergkknpGuv-56-7156 Call EMS if you become short of breath. Return to office if you become febrile or if symptoms persist/worsen. Take NSAIDS or Tylenol per package instructions. Can alternate heat and ice pack s to painful area as needed.Related to MdgwyuayimlddziNja-48-9093MAG showed no acute ST or T segment changes. She will get stat labs, and will refer to car diology since this is typical angina. It is likely a musculoskeletal strain since it began with physical labor and she is low risk. If enzymes are negative she will begin NSAID's. Related to Chest xzhaQgk-15-8439 Work on diet and exercises. Avoid simple carbohydrates. Regular sustained exercise for 30 minutes 4 days weekly can help stabilize your sugars.Related to Impaired fasting zuficccRjd-03-9105 Continue current medications.Related to Hypothyroidism Goals for cholesterol were discussed. Recommend at least 30 minutes of sustained exercise 4 times weekly. Low cholesterol diet advised.Related to OciwetnmfexrrpUro-60-4687Vbnfidp management education, guidance, and counselingRelated to Body mass index (BMI) 27.0-27.9, rngjyBhp-45-0509Zmtpedd foot above the level of your heart. Take Ibuprofen or Aleve OTC as needed. Ice packs at 10 minute intervals. Wear the cast walker when weight bearing.Related to Metatarsalgia, left nfhnPnw-33-7076 Eat small meals, and do not eat for 3 hours prior to lying recumbent. Avoid large, high fat meals and avoid food that my aggravate the problem. Weight loss may also help your symptoms. Recommend daily intake of 1500mg calcium in divided doses two to three times a day. Recommend Vitamin D3 1000 units daily. Regular weight bearing exercises.Related to GERD without wozzyudtibcUcx-63-5096 Continue current medications.Related to FofbyoyylumgyiHjw-63-7174Adsax for cholesterol were discussed. Recommend at least 30 minutes of sustained exercise4 times weekly, advise not going 48 hours without activity. Low cholesterol diet advised.Related to Hyperlipidemia Continue your medication. Work on diet and exercises. Exercise decreases insulin resistance and increases insulin sensitivity for 48 hours. Avoid simple carbohydrates. Regular sustained exercise for 30 minutes 4 days weekly can help stabilize your sugars.Related to Impaired fasting glucose Eat small meals, and do not eat for 3 hours prior to lying recumbent. Avoid large, high fat meals and avoid food that my aggravate the problem.Related to GERD without lpotgqczwifHsr-14-0164 Continue current medications.Related to BeqskmxyboncntWys-29-2220 Goals for cholesterol were discussed. Recommend at least 30 minutes of sustained exercise 4 times weekly. Low cholesterol diet provided.Related to UuljhrovcdhjfsLoc-32-5247 Work on diet and exercises. Avoid simple carbohydrates. Regular sustained exercise for 30 minutes 4 days weekly can help stabilize your sugars.Related to Impaired fasting yflgeepRul-04-8473 Recommend exercising at least 30 minutes four days a week. Recommend a reduced fat, reduced calorie diet. Goals for weight were discussed.Related to Body mass index (BMI) 26.0-26.9, cphenIqk-53-9099Bpsm medications as prescribed. Return to office immediately with any fever, chills, worsening of pain or increased drainage.Related to Cellulitis of buttock Ode-79-7138Nwkc medications as prescribed. Return to office immediately with any fever, chills, worsening of pain or increased drainage.Related to Cellulitis of vsigdJnj-91-1901Usmflcm management education, guidance, and counselingRelated to Body mass index (BMI) 26.0-26.9, wkxcgEtw-61-2145Fwzrberlwvh seems to be working. Related to Abscess1. Low back pain tramadol 50 mg tablet 2. Degeneration of lumbosacral intervertebral disc 3. Lumbosacral neuritis Discussion Note: None recorded. Patient educational handouts: No information available.1. Low back pain 2. Degeneration of lumbosacral intervertebral disc 3. Lumbosacral neuritis Discussion Note: None recorded. Patient educational handouts: No information available.1. Low back pain 2. Degeneration of lumbosacral intervertebral disc 3. Lumbosacral neuritis Discussion Note: None recorded. Patient educational handouts: No information available.1. Osteopenia bone density Discussion Note: None recorded. Patient educational handouts: No information available.1. Cellulitis Bactrim DS 800 mg-160 mg tablet cellulitis: care instructions 2. Varicose veins of lower extremity varicose veins: care instructions Discussion Note: None recorded.1. Varicose veins of lower extremity varicose veins: care instructions Discussion Note: None anitra rded.1. Impaired glucose tolerance HbA1c (hemoglobin A1c), blood 2. Hypothyroidism TSH, serum or plasma 3. Abdominal bloating 4. Chronic constipation Discussion Note: None recorded. Patient educational handouts: No information available.1. Varicose veins of lower extremity varicose veins: care instructions Discussion Note: None recorded.1. Impaired glucose tolerance patient follow up phone call 2. Hypothyroidism Discussion Note: None recorded. Patient educational handouts: No information available.1. Varicose veins of lower extremity compression pantyhose 20-30 mmHg varicose veins: care instructions Discussion Note: None recorded.
[2020-06-28] MEDS: ATORVASTATIN CALCIUM 40 MG TABLET PO SCH (21:57)
[2020-06-29] MEDS: OXYCODONE HCL IR 5 MG TABLET PO PRN ×2 (02:19→08:17)
[2020-06-29] MEDS ORDERED: BISACODYL 10 MG SUPP.RECT PR PRN (05:00)
[2020-06-29] MEDS ORDERED: BISACODYL 5 MG TABEC PO PRN (05:00)
[2020-06-29] MEDS: LEVOTHYROXINE SODIUM 0.088 MG TABLET PO SCH (05:37)
[2020-06-29] MEDS: METHOCARBAMOL 750 MG TABLET PO SCH (05:38)
[2020-06-29] MEDS: GABAPENTIN 300 MG CAPSULE PO SCH (05:38)
[2020-06-29] MEDS: ACETAMINOPHEN 325 MG TABLET PO SCH (05:38)
[2020-06-29] MEDS: PANTOPRAZOLE SODIUM 20 MG TABLET.DR PO SCH (05:38)
--- NOTE | 2020-06-29 08:46 | PDOC DISCHARGE SUMMARY ---
General - Admit/Disc Date/PCP Admission Date/Primary Care Provider: 06/27/20 05:30 STEPHEN MONTAÑO Discharge Date: 06/29/20 - Discharge Diagnosis Final Diagnosis: Spondylolisthesis L4-5 status post L4-5 robotically assisted anterior lateral fusion and posterior fusion instrumentation - Assessment Summary: Patient is doing well status post L4-5 anterior lateral fusion robotically assisted and posterior fusion instrumentation robotically assisted she is reporting no significant leg symptoms back pain is tolerable dressings are intact patient has 2+ dorsalis pedis pulse no calf tenderness. Patient will follow up in the office in 10 days as per her appointment. - Additional Information Resuscitation Status: Full Code Discharge Diet: As Tolerated Discharge Activity: No Driving, No Lifting/Push/Pulling, No tub bath Referrals: JOSE BHATTI FNP-C [Primary Care Provider] - (06/28/20915 PROVIDERS OFFICE DID NOT ANSWER SO I LEFT A MESSAGE AND THEY WILL CONTACT PATIENT WITH FOLLOW UP APT ) Home Medications: Atorvastatin Calcium [Lipitor 40 mg Tablet] 40 mg PO DAILY 06/22/20 Cetirizine HCl [Zyrtec 10 mg Tablet] 10 mg PO DAILY 06/22/20 Gabapentin 300 mg PO QID 06/22/20 Levothyroxine Sodium [Synthroid 0.088 mg Tablet] 88 mcg PO Q6AM 06/22/20 Omeprazole 20 mg PO Q6AM 06/22/20 Metformin HCl [Metformin HCl ER] 500 mg PO DAILY 06/27/20 Acetaminophen [Tylenol 325 mg Tablet] 975 mg PO Q8 tablet 06/28/20 Bisacodyl [Dulcolax 5 mg Tablet] 10 mg PO .POST-OP DAY#2 PRN tabec 06/28/20 Methocarbamol [Robaxin 750 mg Tablet] 1,500 mg PO Q8 tablet 06/28/20 Ondansetron HCl/Pf [Zofran Inj/Pf 4 mg/2 ml Sdv] 4 mg IV Q6HP PRN vial 06/28/20 Oxycodone HCl [Oxy-Ir 5 mg Tablet] 5 mg PO Q4HP PRN tablet 06/28/20 History of Present Illiness History of Present Illness: BILL PATEL is a 65 year old female Physical Exam Vital Signs: Temp Pulse Resp BP Pulse Ox 98.0 F 82 18 100/52 L 93 06/29/20 07:49 06/29/20 07:49 06/29/20 07:49 06/29/20 07:49 06/29/20 07:49 Intake & Output 06/28/20 06/29/20 06/30/20 06:59 06:59 06:59 Intake Total 2560 2860 Output Total 20 1 Balance 2540 2859 Weight 66 kg Results Laboratory Results: WBC 4.5 10^3/uL (4.0-10.5) 06/22/20 10:55 RBC 4.17 10^6/uL (3.72-5.28) 06/22/20 10:55 Hgb 12.9 g/dL (12.0-15.5) 06/22/20 10:55 Hct 37.6 % (36.0-47.0) 06/22/20 10:55 MCV 90 fl (80-97) 06/22/20 10:55 MCH 30.9 pg (27.0-33.4) 06/22/20 10:55 MCHC 34.3 g/dL (32.0-36.0) 06/22/20 10:55 RDW 14.1 % (11.5-14.0) H 06/22/20 10:55 Plt Count 236 10^3/uL (150-450) 06/22/20 10:55 Sodium 137.2 mmol/L (137-145) 06/22/20 10:55 Potassium 4.5 mmol/L (3.6-5.0) 06/22/20 10:55 Chloride 104 mmol/L (98-107) 06/22/20 10:55 Carbon Dioxide 27 mmol/L (22-30) 06/22/20 10:55 Anion Gap 6 (5-19) 06/22/20 10:55 BUN 19 mg/dL (7-20) 06/22/20 10:55 Creatinine 0.84 mg/dL (0.52-1.25) 06/22/20 10:55 Est GFR ( Amer) > 60 (>60) 06/22/20 10:55 Est GFR (MDRD) Non-Af > 60 (>60) 06/22/20 10:55 Glucose 87 mg/dL (75-110) 06/22/20 10:55 POC Glucose 92 mg/dL (70-110) 06/27/20 07:06 Hemoglobin A1c % 5.8 % (4.7-6.0) 06/22/20 10:55 Calcium 9.4 mg/dL (8.4-10.2) 06/22/20 10:55 Urine Color YELLOW 06/22/20 10:45 Urine Appearance CLEAR 06/22/20 10:45 Urine pH 5.0 (5.0-9.0) 06/22/20 10:45 Ur Specific [place] 1.013 06/22/20 10:45 Urine Protein NEGATIVE mg/dL (NEGATIVE) 06/22/20 10:45 Urine Glucose (UA) NEGATIVE mg/dL (NEGATIVE) 06/22/20 10:45 Urine Ketones NEGATIVE mg/dL (NEGATIVE) 06/22/20 10:45 Urine Blood NEGATIVE (NEGATIVE) 06/22/20 10:45 Urine Nitrite NEGATIVE (NEGATIVE) 06/22/20 10:45 Urine Bilirubin NEGATIVE (NEGATIVE) 06/22/20 10:45 Urine Urobilinogen NEGATIVE mg/dL (<2.0) 06/22/20 10:45 Ur Leukocyte Esterase TRACE (NEGATIVE) H 06/22/20 10:45 Urine WBC (Auto) 1 /HPF 06/22/20 10:45 Urine RBC (Auto) 0 /HPF 06/22/20 10:45 U Hyaline Cast (Auto) 1 /LPF 06/22/20 10:45 Squamous Epi Cells Auto <1 /HPF 06/22/20 10:45 Urine Mucus (Auto) RARE /LPF 06/22/20 10:45 Urine Ascorbic Acid NEGATIVE (NEGATIVE) 06/22/20 10:45 Urine Opiates Screen NEGATIVE 06/22/20 10:45 Urine Methadone Screen NEGATIVE 06/22/20 10:45 Ur Barbiturates Screen NEGATIVE 06/22/20 10:45 Ur Phencyclidine Scrn NEGATIVE 06/22/20 10:45 Ur Amphetamines Screen NEGATIVE 06/22/20 10:45 U Benzodiazepines Scrn NEGATIVE 06/22/20 10:45 Urine Cocaine Screen NEGATIVE 06/22/20 10:45 U Marijuana (THC) Screen NEGATIVE 06/22/20 10:45 Serum Alcohol < 10 mg/dL (NONE DETECTED) 06/22/20 10:55 COVID-19 Source See comment 06/22/20 10:45 COVID-19 (JIN) Not Detected (Not Detect) 06/22/20 10:45 Blood Type O NEGATIVE 06/27/20 06:34 Antibody Screen NEGATIVE 06/27/20 06:34 Impressions: Chest X-Ray 06/22/20 00:00 IMPRESSION: NO SIGNIFICANT RADIOGRAPHIC FINDING IN THE CHEST. Fluoroscopy 06/27/20 00:00 IMPRESSION: IMAGE(S) OBTAINED DURING PROCEDURE. Lumbar Spine X-Ray 06/27/20 00:00
[2020-06-29] MEDS: CETIRIZINE 10 MG TABLET PO SCH (09:39)
[2020-06-29] MEDS: SENNOSIDES/DOCUSATE 8.6-50 MG 1 EACH TABLET PO SCH (09:39)
[2020-06-29] MEDS: POLYETHYLENE GLYCOL 3350 POWDER 17 GM/1 PACKET PO SCH (09:39)
[2020-06-29] MEDS: METFORMIN HCL 500 MG TABLET PO SCH (09:40)
[2020-06-29 09:52] VITALS: BP 117/64
== END 2020-06-29 10:38 | disposition home or self-care (01) | DRG 460 ==
LOC: INOR 05:30 → EDSTATUS 07:30 → 4N 11:30
PROVIDERS: ADMIT Orthopaedic Surgery; ATTEND Orthopaedic Surgery
PROC: 0SB20ZZ Excision of Lumbar Vertebral Disc, Open Approach (ICD-10-PCS; 2020-06-27)
PROC: 07DR0ZZ Extraction of Iliac Bone Marrow, Open Approach (ICD-10-PCS; 2020-06-27)
PROC: 8E0W4CZ Robotic Assisted Procedure of Trunk Region, Percutaneous Endoscopic Approach (ICD-10-PCS; 2020-06-27)
PROC: 0SG007J Fusion of Lumbar Vertebral Joint with Autologous Tissue Substitute, Posterior Approach, Anterior Column, Open Approach (ICD-10-PCS; principal; 2020-06-27 07:30)
PROC: 3E02340 Introduction of Influenza Vaccine into Muscle, Percutaneous Approach (ICD-10-PCS; 2020-06-29)
DX: M43.16 Spondylolisthesis, lumbar region (principal); M51.16 Intervertebral disc disorders with radiculopathy, lumbar region; Z20.828 Contact with and (suspected) exposure to other viral communicable diseases; Z23 Encounter for immunization; Z79.899 Other long term (current) drug therapy; E03.9 Hypothyroidism, unspecified; E78.00 Pure hypercholesterolemia, unspecified; F41.1 Generalized anxiety disorder; Z86.14 Personal history of Methicillin resistant Staphylococcus aureus infection; Z86.010 Personal history of colon polyps
CPT/HCPCS: 00630; 36415; 71046; 72100; 80048; 80307; 81001; 82962; 83036; 85027; 86850; 86900; 86901; 87070; 87635; 90471; 90686; 93005; 93010; 94760; 94799; C1713; C1781; C9290; C9803; G0008; J0330; J1100; J1170; J1644; J2250; J2405; J2704; J2765; J2800; J3010; J3490; J7120; Q9966